=== PATIENT | male | born 1975 ===

== ENCOUNTER 2024-02-11 10:30 | Inpatient (IN) | payer OTHER, SELFPAY ==
[2024-02-11] VITALS (8 sets, daily range): BP systolic 114–168; BP diastolic 86–117; PULSE 100–130; RESP 16–24; TEMP -17.7–37.2; O2SAT 90–97; BMI 34.5
--- NOTE | ~2024-02-11 | CT_ITS ---
EXAMINATION: CT HEAD WITHOUT CONTRAST CLINICAL INFORMATION: AMS COMPARISON: None available. TECHNIQUE: Contiguous axial imaging was performed from the skull base to vertex without intravenous administration of contrast. This CT examination was performed using dose optimization techniques as appropriate, variously including the following: *Automated exposure control *Adjustment of mA and/or kV according to patient size (this includes techniques or standardized protocols for targeted exams where dose is matched to indication/reason for exam; i.e. extremities or head) *Use of iterative reconstruction technique DLP: 755 mGy-cm FINDINGS: Acute intra-axial, extra-axial bleed, masses or midline shift. There is no acute infarction in evolution. There is no edema. Brunner to white matter differentiation is maintained normal. The lateral ventricles are symmetrical in size and configuration without enlargement. Bone windows reveal no calvarial abnormality. There is mild mucoperiosteal thickening bilateral ethmoid and maxillary sinuses. The mastoid air cells are clear. CT/CT head/brain wo IV con IMPRESSION: No acute intracranial process seen Electronically signed by: Mark Jeffrey MD 02/11/2024 01:43 PM EST
--- NOTE | 2024-02-11 10:57 | ECG_ITS ---
Test Reason : MED CLEARANCE Blood Pressure : / mmHG Vent. Rate : 107 BPM Atrial Rate : 107 BPM P-R Int : 146 ms QRS Dur : 092 ms QT Int : 336 ms P-R-T Axes : 049 008 051 degrees QTc Int : 448 ms Sinus tachycardia Cannot rule out Inferior infarct , age undetermined Abnormal ECG No previous ECGs available Referred By: Mi Pizarro Electronically Signed By:ANA PAULA DELGADO MD
--- NOTE | 2024-02-11 10:57 | PC.NURSE ---
patient is calm but uncooperative during policy change clerk, patient changed into hospital attire, with security, belongings secured. patient on sect 12, made HI statements to , SI statements towards self. patient resp even and unlabored, skin dry and intact. patient noted to have left pupils larger than the right, both reactive to light, patient denies this being something he was aware of, denies any falls or trauma.
--- NOTE | 2024-02-11 11:07 | ED_ITS ---
HPI - General Adult General Chief complaint: Psychiatric Symptoms Stated complaint: PSYCH EVAL,GF STS SI/HI STATEMENTS, COOP PER EMS Time Seen by Provider: 02/11/24 10:44 Source: patient, EMS and police Mode of arrival: EMS Limitations: no limitations History of Present Illness ED Provider: Mi Pizarro PA-C HPI narrative: Patient is a 48 year old assigned male at with a history of schizophrenia and asthma presenting to the emergency department today with HI and SI statements. Patient states that last night into today his girlfriend accused him of saying something but he isn't sure what and all of a sudden police and EMS showed up. Patient denies any thoughts of hurting himself or others at this time, dizziness, lightheadedness, abdominal pain, nausea, vomiting, fever, chills, blurry vision, double vision, loss of vision, chest pain, difficulty breathing, shortness of breath, back pain, night sweats, pain with urination, increased urinary frequency, increased urinary urgency, blood in his urine or stool, syncope or a near syncopal episode, recent trauma or falls, bowel incontinence, bladder incontinence, or any other complaints at this time. Relieving factors: none Exacerbating factors: none Associated symptoms: denies other symptoms Treatments prior to arrival: none Related Data Allergies Allergy/AdvReac Type Severity Reaction Status Date / Time bupropion [From Wellbutrin] Allergy Unknown Verified 02/11/24 10:56 fluoxetine [From Prozac] Allergy Unknown Verified 02/11/24 10:56 Review of Systems 2 Constitutional: Constitutional: Reports no additional constitutional complaints, Denies chills, Denies fever(s) and Denies night sweats Eyes: Eyes: Reports no additional eye complaints, Denies blurry vision, Denies change in vision, Denies diplopia, Denies eye discharge, Denies loss of vision and Denies eye pain ENT: Denies dizziness Cardiovascular: Cardiovascular: Reports no additional cardiovascular complaints, Denies chest pain, Denies lightheadedness, Denies Loss of Consciousness and Denies dyspnea Respiratory: Respiratory: Reports no additional respiratory complaints and Denies dyspnea Gastrointestinal: Gastrointestinal: Reports no additional gastrointestinal complaints, Denies abdominal pain, Denies melena, Denies hematochezia, Denies change in bowel habits and Denies change in stool character Genitourinary: Genitourinary: Reports no additional male genitourinary complaints, Denies hematuria, Denies oliguria, Denies difficulty urinating, Denies dysuria, Denies urinary frequency, Denies urinary hesitancy, Denies urinary incontinence and Denies urinary urgency Musculoskeletal: Musculoskeletal: Reports no additional musculoskeletal complaints, Denies numbness and Denies tingling Neurologic: Denies dizziness, Denies loss of vision, Denies numbness and Denies tingling Psychiatric: Psychiatric: Reports no additional psychiatric complaints, Denies homicidal ideation and Denies suicidal ideation Endocrine: Endocrine: Reports no additional endocrine complaints Hematologic/Lymphatic: Hematologic/Lymphatic: Reports no additional hematologic/lymphatic complaints Allergic/Immunologic: Allergic/Immunologic: Reports no additional allergic/immunologic complaints PMFSH Past Medical History Attestation statement: The following information was validated with the patient. Source: old records reviewed and nursing notes reviewed Social History Social History Advance Directives: No Advance Directives Information Provided: Yes Physical Exam ED Vital Signs: Vital Signs - 24 hr 02/11/24 10:47 02/11/24 14:48 02/11/24 14:48 Temperature 97.8 F Pulse Rate 111 H 111 H 130 H Respiratory Rate 20 20 16 Blood Pressure 132/96 H 133/89 Pulse Oximetry 97 90 L Oxygen Delivery Method Room Air Room Air BMI result Body Mass Index 34.5 Const General: cooperative, no acute distress, alert and awake Nutritional Appearance: well nourished Orientation/consciousness: patient oriented x3 Limitations: no limitations [facility] Head: Yes normal to inspection and Yes atraumatic Ears: hearing grossly normal bilaterally and external ears normal General nose exam: Normal external nose present, no nasal discharge noted and no epistaxis Face and sinus: Yes normal facial exam, No abrasion and No laceration Mouth: Normal oral and palatal mucosa present, no drooling and no muffled voice Eyes General: appearance normal, both eyes and all related structures Periorbital: periorbital findings normal Eyelids: Yes eyelids normal Conjunctivae: conjunctivae normal EOM: EOMs intact bilaterally Neck Neck: Yes normal visual inspection, Yes full ROM and Yes no lymphadenopathy Chest Chest palpation & inspection: normal inspection of the chest Resp Effort & Inspection: normal respiratory effort and able to speak in complete sentences Auscultation: wheezes throughout Cardio Rate: tachycardic Rhythm: regular rhythm GI Inspection: Yes normal to inspection Neuro General: patient oriented x3 and moves all extremities Cognition (Neuro): normal cognition Extrem General: Yes normal to inspection, Yes full ROM and Yes capillary refill normal Psych Appearance: grossly normal Mental Status: mental status grossly normal Affect: normal affect Attitude: cooperative Thought process: Normal thought process present Thought content: Normal thought content present Insight: Good insight present (Psych) Medications Administered Discontinued Medications Generic Name Dose Route Start Last Admin Trade Name Daniel PRN Reason Stop Dose Admin Levalbuterol HCl 1.25 mg 02/11/24 14:47 02/11/24 14:49 Levalbuterol Hcl 1.25 Mg/3 Ml Vial.Neb INHALE 02/11/24 14:48 1.25 mg ONCE ONE Administration Lorazepam 2 mg 02/11/24 10:57 02/11/24 11:40 Lorazepam 1 Mg Tablet PO 02/11/24 10:58 2 mg ONCE ONE Administration Medical Decision Making Medical Decision Making [facility] Narrative: Patient is a 48 year old assigned male at with a history of schizophrenia and asthma presenting to the emergency department today with HI and SI statements. Patient's physical exam was as noted in the physical exam portion of this note. Patient's blood work was unremarkable. Patient's EKG showed sinus tachycardia. Patient's head CT showed no acute process. Patient's RSV test was positive. I explained my physical exam findings as well as all test results to the patient. I answered all questions asked by the patient. While awaiting CARE team evaluation the patient became more wheezy. Patient was then given IV magnesium and solu-medrol as well as a breathing treatment which he stated helped him significantly. Patient's disposition will be determined after CARE team evaluation. Patient signed out to larry CANDELARIA. Differential Diagnosis Differential Diagnoses: The differential diagnosis associated with the presentation includes RSV SI HI Alcohol use Admission/Observation Consideration of admission/observation: Escalation of care including admission/observation considered Patient's disposition will be determined after CARE team evaluation. Lab Data [facility] Lab Attestation statement: I reviewed the patient's lab results. My interpretation of these results are in the MDM Rationale portion of this note. 02/11/24 12:13 02/11/24 12:13 Labs: Lab Results 02/11/24 Range/Units 12:13 WBC 8.3 (4.8-10.8) X10*3/uL RBC 5.43 (4.60-5.80) X10*6/uL Hgb 17.7 (14.0-18.0) g/dl Hct 48.9 (42.0-52.0) % MCV 90.1 (80.0-98.0) fL MCH 32.6 (27.0-33.0) pg MCHC 36.2 H (31.0-36.0) g/dl RDW 13.1 (11.0-16.0) % Plt Count 227 (160-400) X10*3/uL MPV 8.6 L (9.4-12.4) fL Immature Gran % (Auto) 0.5 H (0.0-0.4) % Neut % (Auto) 59.7 (45-73) % Lymph % (Auto) 24.0 (20-40) % Giles % (Auto) 9.9 (2-11) % Eos % (Auto) 4.6 H (0-4) % Baso % (Auto) 1.3 (0-2) % Lymph # (Auto) 2.0 (1.2-4.9) X10*3/uL [place]iles # (Auto) 0.8 (0.1-1.2) X10*3/uL Eos # (Auto) 0.4 (0.0-0.4) X10*3/uL Baso # (Auto) 0.1 (0.0-0.2) X10*3/uL Abs Immat Gran (auto) 0.04 H (0.00-0.03) X10*3/uL Absolute Neuts (auto) 5.0 (2.0-8.3) x10*3/uL Absolute Nucleated RBC 0.000 (0.0-0.012) X10*3/uL Nucleated RBC % (auto) 0.0 (0.0-0.2) /100WBC Sodium 143 (135-145) mmol/L Potassium 3.5 (3.3-5.1) mmol/L Chloride 106 (96-108) mmol/L Carbon Dioxide 28 (22-29) mmol/L Anion Gap 13 (12-20) BUN 14 (9-16) mg/dL Creatinine 0.83 (0.5-1.4) mg/dL Estim Creat Clear Calc 123.8 Estimated GFR > 60 Random Glucose 111 (60-115) mg/dL Calcium 8.3 L (8.4-10.2) mg/dL Magnesium 2.1 (1.6-2.6) mg/dL Total Bilirubin 1.0 (0.0-1.0) mg/dL AST 79 H (5-37) U/L ALT 93 H (0-40) U/L Alkaline Phosphatase 52 (39-117) U/L Total Protein 6.8 (6.5-8.0) g/dL Albumin 4.0 (3.5-5.0) g/dL Influenza Type A (PCR) NEGATIVE (Negative) Influenza Type B (PCR) NEGATIVE (Negative) RSV RNA Qual (PCR) POSITIVE A (Negative) SARS-CoV-2 RNA (RT-PCR) NEGATIVE (Negative) Independent Interpretation I performed an independent interpretation of an: EKG and CT Scan Interpretation: My interpretation is in agreement with the radiologist's impression of this imaging study. L Report Number: [id number]: Total DLP = 755.00 mGy-cm EXAMINATION: CT HEAD WITHOUT CONTRAST CLINICAL INFORMATION: AMS COMPARISON: None available. TECHNIQUE: Contiguous axial imaging was performed from the skull base to vertex without intravenous administration of contrast. This CT examination was performed using dose optimization techniques as appropriate, variously including the following: *Automated exposure control *Adjustment of mA and/or kV according to patient size (this includes techniques or standardized protocols for targeted exams where dose is matched to indication/reason for exam; i.e. extremities or head) *Use of iterative reconstruction technique DLP: 755 mGy-cm FINDINGS: Acute intra-axial, extra-axial bleed, masses or midline shift. There is no acute infarction in evolution. There is no edema. Brunner to white matter differentiation is maintained normal. The lateral ventricles are symmetrical in size and configuration without enlargement. Bone windows reveal no calvarial abnormality. There is mild mucoperiosteal thickening bilateral ethmoid and maxillary sinuses. The mastoid air cells are clear. CT/CT head/brain wo IV con IMPRESSION: No acute intracranial process seen Electronically signed by: Mark Jeffrey MD 02/11/2024 01:43 PM [facility] Dictated By: Mark Jeffrey MD Signed By: Electronically signed by Mark Jeffrey MD 02/11/24 1343 Vent. Rate: 107 BPM Atrial Rate: 107 BPM P-R Int: 146 ms QRS Dur: 092 ms QT Int: 336 ms P-R-T Axes: 049 008 051 degrees QTc Int: 448 ms Sinus tachycardia Cannot rule out Inferior infarct , age undetermined No previous ECGs available Referred By: Mi Pizarro Electronically Signed By:SHEN DELGADO MD Dictated By: Shen Delgado MD Signed By: Electronically signed by Shen Delgado MD 02/11/24 1230 Radiology Impression Discussion of test interpretation with radiology: I have reviewed the radiologist's reading. Independent Historian Clinical information obtained from an independent historian. History obtained from or confirmed by: EMS (EMS provided additional history and confirmed the history provided by the patient.) Critical Care Time Critical Care Time Critical Care Time: Yes Total Critical Care Time: 41 Attestation: I spent 41 minutes of Critical Care Time with this patient. This does not include time spent on separately reported billable procedures. Discharge Plan Discharge Clinical Impression: RSV (respiratory syncytial virus infection), Alcohol use Patient Disposition: Still a Patient Print Language: Canadian
[2024-02-11] MEDS: LORazepam 1 MG TABLET 2 MG PO (11:40)
[2024-02-11 12:17] LABS: MANUAL DIFF FLAG NO
[2024-02-11 12:18] LABS: Basophils Absolute Auto 0.1 X10*3/uL (0.0-0.2); Basophils Percent Auto 1.3 % (0-2); Eosinophils Absolute Auto 0.4 X10*3/uL (0.0-0.4); Eosinophils Percent Auto 4.6 % (0-4); Hematocrit 48.9 % (42.0-52.0); Hemoglobin 17.7 g/dl (14.0-18.0); Imm Gran Abs Auto 0.04 X10*3/uL (0.00-0.03); Imm Gran Pct Auto 0.5 % (0.0-0.4); Mean Corpuscular HGB Conc 36.2 g/dl (31.0-36.0); Mean Corpuscular Hemoglobin 32.6 pg (27.0-33.0); Mean Corpuscular Volume 90.1 fL (80.0-98.0); Mean Platelet Volume 8.6 fL (9.4-12.4); Monocytes Absolute Auto 0.8 X10*3/uL (0.1-1.2); Monocytes Percent Auto 9.9 % (2-11); Neutrophils Percent Auto 59.7 % (45-73); Platelet Count 227 X10*3/uL (160-400); Red Blood Count 5.43 X10*6/uL (4.60-5.80); Red Cell Distribution Width 13.1 % (11.0-16.0); White Blood Count 8.3 X10*3/uL (4.8-10.8)
[2024-02-11 12:34] LABS: Alanine Aminotransferase 93 U/L (0-40); Alkaline Phosphatase 52 U/L (39-117); Anion Gap 13 (12-20); Aspartate Amino Transferase 79 U/L (5-37); Blood Urea Nitrogen 14 mg/dL (9-16); Calcium 8.3 mg/dL (8.4-10.2); Carbon Dioxide 28 mmol/L (22-29); Chloride 106 mmol/L (96-108); Creatinine Clr Calc Pharmacy 123.8; Estimated Glomerular Filt Rate > 60; Glucose Random 111 mg/dL (60-115); Magnesium 2.1 mg/dL (1.6-2.6); Potassium 3.5 mmol/L (3.3-5.1); Sodium 143 mmol/L (135-145); Total Protein 6.8 g/dL (6.5-8.0)
[2024-02-11 12:59] LABS: Influenza A PCR NEGATIVE (Negative); Influenza B PCR NEGATIVE (Negative); Resp Syncy Virus RNA Qual PCR POSITIVE (Negative); SARS COV2 PCR INHOUSE NEGATIVE (Negative)
--- NOTE | 2024-02-11 14:42 | PC.NURSE ---
Pt c/o diff breathing. is sitting at bdside. tripoding. skin pwd. provider aware. treatment ordred.
[2024-02-11] MEDS: levalbuterol HCL 1.25 MG/3 ML VIAL.NEB INHALE (14:49)
[2024-02-11] MEDS: methylPREDNISolone Sod Succ 125 MG/2 ML VIAL 60 MG IVPUSH (15:20)
[2024-02-11] MEDS: Magnesium Sulfate/D5W 1 GM/100 ML PIGGYBACK IV (15:21)
--- NOTE | 2024-02-11 15:27 | PC.NURSE ---
Pt reports feeling better. Is on monitor in dong bed. ST. skin PWD. slightl tremor. last ETOH this am.
[2024-02-11] MEDS: Albuterol Sulfate 90 MCG 8 GM INHALER 4 PUFF INHALE (16:25)
[2024-02-11] MEDS: 0.9 % Sodium Chloride 1,000 ML 999 ML IV (17:45)
[2024-02-11 18:45] LABS: Appearance Urine Cloudy; Color Urine Yellow; Glucose Urine UA 100 mg/dL (Negative); Leukocyte Esterase Urine Trace (Negative); Nitrite Urine Negative (Negative); UMIC TRIGGER UACC YES; Urine Blood Moderate (2+) (Negative); Urine Ketones Trace mg/dL (Negative); Urine Protein 30 (1+) mg/dL (Neg-Trace)
[2024-02-11 18:48] LABS: Bacteria Urine None Seen (None Seen); Hyaline Casts Urine 0-2 /LPF (0-2); Squamous Epithelial Cell Urine 0-2 /HPF (0-2); WBC Urine 0-5 /HPF (0-5)
--- NOTE | 2024-02-11 19:15 | PC.NURSE ---
Pt adament he will leave AMA. Risks and benefits reviewed by ED provider. D/c paperwork signed and Pt given belongings. Upon attempting to leave Pt reports he feels unwell and reconsiders and wishes to stay for Tx. ED provider aware. Pt placed back on stretcher with O2 and O2 sensor. Care of Pt relinquished to SUGAR Granda.
[2024-02-11] MEDS: PHENobarbitaL sodium 130 MG/ML VIAL 260 MG IM (19:24)
[2024-02-11 19:28] LABS: Amphetamine Screen Urine Not Detected (Not Detect); Barbiturates, Urine Not Detected (Not Detect); Benzodiazepines Screen Urine Not Detected (Not Detect); Buprenorphine Scr Not Detected (Not Detect); Cannabinoid Screen Urine Not Detected (Not Detect); Cocaine Screen Urine POSITIVE (Not Detect); Fentanyl, urine Not Detected (Not Detect); Methadone Screen, Urine Not Detected (Not Detect); Opiate Screen Urine Not Detected (Not Detect); Oxycodone Screen Urine Not Detected (Not Detect); Phencyclidine Screen Urine Not Detected (Not Detect)
--- NOTE | 2024-02-11 19:37 | PM.IMHP ---
History of Present Illness Date of Service: 02/11/24 Chief Complaint: Alcohol withdrawal This is a 48-year-old male with pertinent history of asthma not on home oxygen, alcohol use disorder who presents to the emergency department for concerns of alcohol withdrawal and dyspnea. Patient states he got in a fight with his girlfriend and was binge drinking on the day of presentation. His last drink was on the day of presentation. Does have a history of alcohol withdrawals in the past. No history of alcohol withdrawal seizures. Also started having dyspnea and dry cough on the day of presentation. Dyspnea is worse with exertion. No orthopnea or PND. No fever, chills, chest pain, palpitations, abdominal pain, changes in urinary or bowel habits. In the emergency department, patient tested positive for RSV and requiring supplemental oxygen. Was initiated on phenobarb protocol in the ER. Review of Systems Constitutional: Constitutional: Reports malaise Cardiovascular: Cardiovascular: Reports dyspnea on exertion Respiratory: Respiratory: Reports cough and Reports dyspnea on exertion Gastrointestinal: Gastrointestinal: Reports no additional gastrointestinal complaints Genitourinary: Genitourinary: Reports no additional male genitourinary complaints Psychiatric: Psychiatric: Reports anxiety [facility] Medical History Alcohol use disorder Asthma Pertinent family history: No family history of early CAD Social History Advance Directives: No Advance Directives Information Provided: Yes Meds Allergies Allergy/AdvReac Type Severity Reaction Status Date / Time bupropion [From Wellbutrin] Allergy Unknown Verified 02/11/24 10:56 fluoxetine [From Prozac] Allergy Unknown Verified 02/11/24 10:56 Physical Exam Vital Signs and Narrative: Vital Signs: Last Vital Signs Temp 0 F L 02/11/24 18:58 Pulse 122 H 02/11/24 18:58 Resp 20 02/11/24 18:58 BP 143/99 H 02/11/24 18:58 Pulse Ox 96 02/11/24 18:58 O2 Del Method Room Air 02/11/24 18:58 O2 Flow Rate 3 02/11/24 15:16 BMI result Body Mass Index 34.5 Middle-aged male lying in bed in no distress Neck supple, no JVD Tachycardic with regular rhythm, S1-S2 heard Regular breath sounds bilaterally, no wheezing or crackles appreciated Abdomen soft nontender, no guarding, no rigidity Patient is awake, alert and oriented to self, place, time and person ; no focal motor deficit Psych: Anxious No pedal edema Results Labs 02/11/24 12:13 02/11/24 12:13 Labs: Laboratory Results - last 24 hr 02/11/24 02/11/24 12:13 18:35 MCV 90.1 MCH 32.6 MCHC 36.2 H RDW 13.1 Plt Count 227 MPV 8.6 L Immature Gran % (Auto) 0.5 H Neut % (Auto) 59.7 Lymph % (Auto) 24.0 Dolores % (Auto) 9.9 Eos % (Auto) 4.6 H Baso % (Auto) 1.3 Lymph # (Auto) 2.0 [place]ores # (Auto) 0.8 Eos # (Auto) 0.4 Baso # (Auto) 0.1 Abs Immat Gran (auto) 0.04 H Absolute Neuts (auto) 5.0 Absolute Nucleated RBC 0.000 Nucleated RBC % (auto) 0.0 Anion Gap 13 Estim Creat Clear Calc 123.8 Estimated GFR > 60 Random Glucose 111 Calcium 8.3 L Magnesium 2.1 Total Bilirubin 1.0 AST 79 H ALT 93 H Alkaline Phosphatase 52 Total Protein 6.8 Albumin 4.0 Urine Color Yellow Urine Appearance Cloudy Urine pH 8.0 Ur Specific [place] 1.020 Urine Protein 30 (1+) H Urine Glucose (UA) 100 H Urine Ketones Trace Urine Blood Moderate (2+) H Urine Nitrite Negative Ur Leukocyte Esterase Trace H Urine RBC 11-20 H Urine WBC 0-5 Ur Squamous Epith Cells 0-2 Urine Bacteria None Seen Hyaline Casts 0-2 Urine Opiates Screen Not Detected Ur Buprenorphine Scrn Not Detected Ur Oxycodone Screen Not Detected Urine Methadone Screen Not Detected Urine Fentanyl Screen Not Detected Ur Barbiturates Screen Not Detected Ur Phencyclidine Scrn Not Detected Ur Amphetamines Screen Not Detected U Benzodiazepines Scrn Not Detected Urine Cocaine Screen POSITIVE H U Marijuana (THC) Screen Not Detected Influenza Type A (PCR) NEGATIVE Influenza Type B (PCR) NEGATIVE RSV RNA Qual (PCR) POSITIVE A SARS-CoV-2 RNA (RT-PCR) NEGATIVE Imaging Radiologist's Impressions: Impressions Head CT 02/11/24 12:50 IMPRESSION: No acute intracranial process seen Electronically signed by: Mark Jeffrey MD 02/11/2024 01:43 PM EST Assessment and Plan (1) Asthma exacerbation: Status: Acute (2) Alcohol use: Status: Acute Plan This is a 48-year-old male with pertinent history of asthma not on home oxygen, alcohol use disorder who presents to the emergency department for concerns of alcohol withdrawal and dyspnea. #. Acute hypoxemic respiratory failure due to acute exacerbation of asthma in the setting of RSV infection: Will admit patient with supplemental oxygen. Scheduled and p.r.n. DuoNebs. Continue home inhaler. Initiating systemic steroids #. Alcohol withdrawal in a patient with alcohol use disorder: Initiated on phenobarb protocol in the ER. Monitor CIWA. Initiating thiamine. Consulted Addiction Team #. Cocaine use disorder: Addiction Team as above DVT prophylaxis: Lovenox Full code Admit as inpatient and will require two night minimum hospital stay for supplemental oxygen, management of alcohol withdrawal (as above), which is not possible in a lesser acute setting. Quality Stroke Does the patient have a stroke diagnosis?: No VTE Prior VTE?: No VTE Risk Level:: Medical - moderate - high VTE Device Contraindication: Treatment Not Indicated VTE Drug Contraindication: N/A - Med Ordered
[2024-02-11] MEDS: LORazepam 1 MG TABLET PO (20:05)
--- NOTE | 2024-02-11 20:36 | MHC.EDTECH ---
This tech took over care of pt at 1930,rounded and introduced self to patient.vitals taken,BP is elevated RT,154/117,LT arm 168/112,HR 115, RN was made aware,
[2024-02-11] MEDS: Thiamine HCL 100 MG in 0.9 % Sodium Chloride 100 ML 202 MG IV (20:41)
--- NOTE | 2024-02-11 21:02 | PHA.MEDREC ---
Addendum entered by Kendall Sahni RPh 02/11/24 21:08: med rec reviewed. pharmaceutical service representative checked last fill of xanax was 06/14/23 Original Note: Pharmacy Consult ? Medication Reconciliation Pharmacy has completed the medication reconciliation. Spoke to patient to confirm med list. Patient states he is taking Duoneb, Ventolin HFA inhaler and Xanax 0.5 mg daily prn , however last claim for Xanax 0.25 mg was on 06/14/23 for 8 tabs no claim history for any other medications. So, left off med rec.
[2024-02-11] MEDS: Enoxaparin Sodium 40 MG/0.4 ML SYRINGE SUBCUT (21:20)
[2024-02-11] MEDS: PHENobarbitaL sodium 130 MG/ML VIAL IM Q3Hx2 237 MG IM (21:53)
[2024-02-11] MEDS: 0.9 % Sodium Chloride Flush 3 ML SYRINGE IVFLUSH (22:25)
[2024-02-12] VITALS: BP 149/84; PULSE 104; RESP 17; TEMP 36.4; O2SAT 91
[2024-02-12] MEDS: PHENobarbitaL sodium 130 MG/ML VIAL IM Q3Hx2 237 MG IM (01:11)
[2024-02-12] MEDS: Albuterol/Iprat 2.5/0.5MG 3 ML AMPUL.NEB INHALE ×3 (03:24→15:46)
[2024-02-12 03:26] VITALS: PULSE 102; RESP 20; O2SAT 92
[2024-02-12 06:30] LABS: MANUAL DIFF FLAG NO
[2024-02-12 06:37] LABS: Basophils Percent Auto 0.3 % (0-2); Eosinophils Percent Auto 0.1 % (0-4); Hematocrit 43.1 % (42.0-52.0); Hemoglobin 15.4 g/dl (14.0-18.0); Imm Gran Abs Auto 0.06 X10*3/uL (0.00-0.03); Imm Gran Pct Auto 0.7 % (0.0-0.4); Lymphocytes Absolute Auto 0.9 X10*3/uL (1.2-4.9); Lymphocytes Percent Auto 9.7 % (20-40); Mean Corpuscular HGB Conc 35.7 g/dl (31.0-36.0); Mean Corpuscular Hemoglobin 32.4 pg (27.0-33.0); Mean Corpuscular Volume 90.7 fL (80.0-98.0); Mean Platelet Volume 9.5 fL (9.4-12.4); Monocytes Absolute Auto 0.7 X10*3/uL (0.1-1.2); Monocytes Percent Auto 7.4 % (2-11); Neutrophils Absolute Auto 7.2 x10*3/uL (2.0-8.3); Neutrophils Percent Auto 81.8 % (45-73); Platelet Count 216 X10*3/uL (160-400); Red Blood Count 4.75 X10*6/uL (4.60-5.80); Red Cell Distribution Width 12.9 % (11.0-16.0); White Blood Count 8.8 X10*3/uL (4.8-10.8)
[2024-02-12 06:50] LABS: Anion Gap 12 (12-20); Blood Urea Nitrogen 16 mg/dL (9-16); Calcium 8.1 mg/dL (8.4-10.2); Carbon Dioxide 25 mmol/L (22-29); Chloride 106 mmol/L (96-108); Creatinine Clr Calc Pharmacy 120.9; Estimated Glomerular Filt Rate > 60; Glucose Random 134 mg/dL (60-115); Potassium 4.1 mmol/L (3.3-5.1); Sodium 139 mmol/L (135-145)
[2024-02-12 07:32] VITALS: BP 137/89; PULSE 88; RESP 16; TEMP 36.1; O2SAT 96
[2024-02-12 08:05] VITALS: PULSE 60; RESP 18; O2SAT 96
[2024-02-12] MEDS: 0.9 % Sodium Chloride Flush 3 ML SYRINGE IVFLUSH (08:59)
[2024-02-12] MEDS: PHENobarbitaL 15 MG TABLET 45 MG PO (09:00)
[2024-02-12] MEDS: Thiamine HCL 100 MG TABLET PO (09:00)
[2024-02-12] MEDS: predniSONE 20 MG TABLET 40 MG PO (09:00)
--- NOTE | 2024-02-12 12:48 | MHC.CM.PN ---
pt lives w/gir;friend he has his own ride home dc plan home n/s
--- NOTE | 2024-02-12 13:36 | P.PNIM_ITS ---
Subjective Subjective Date of Service: 02/12/24 Interval History: Feeling better since yesterday, shortness of breath has improved , denies tremors, no hallucinations, no palpitations, no sweating, no acute events overnight. Review of Systems All other system reviewed and are negative Physical Exam 2 Vital Signs: Vital Signs: Last Vital Signs Temp 96.9 F 02/12/24 07:32 Pulse 60 02/12/24 08:05 Resp 18 02/12/24 08:05 BP 137/89 02/12/24 07:32 Pulse Ox 96 02/12/24 07:32 O2 Del Method Nasal Cannula 02/12/24 07:32 O2 Flow Rate 1.5 02/12/24 07:32 BMI result Body Mass Index 34.5 Const: Other: General resting comfortably in no acute distress. Anicteric sclera Neck no JVD. CVS regular rate rhythm, Respiratory lungs coarse breath sounds, occasional wheeze Gastrointestinal abdomen soft, non tender, bowel sounds audible,no guarding , no rigidity. Extremities no edema. Neuro non focal Skin no rash Appropriate affect Objective Data Active Medications Acetaminophen (Acetaminophen 325 Mg Tablet) 650 mg PO Q6H PRN PRN Reason: Pain, Mild 1-3,fever,headache Albuterol/Ipratropium (Albuterol/Iprat 2.5/0.5mg 3 Ml Ampul.Neb) 3 ml INHALE Q4H PRN PRN Reason: Shortness of Breath/Wheezing Last Admin: 02/12/24 03:24 Dose: 3 ml Documented By: BRI Albuterol/Ipratropium (Albuterol/Iprat 2.5/0.5mg 3 Ml Ampul.Neb) 3 ml INHALE RQ4H WHILE AWAKE [facility] Last Admin: 02/12/24 11:46 Dose: Not Given Documented By: LISSA Non-Admin Reason: Patient Refused Benzonatate (Benzonatate 100 Mg Capsule) 100 mg PO TID PRN PRN Reason: Cough Calcium Carbonate (Calcium Carbonate 750 Mg Tab.Chew) 750 mg PO Q4H PRN PRN Reason: Heartburn Enoxaparin Sodium (Enoxaparin Sodium 40 Mg/0.4 Ml Syringe) 40 mg SUBCUT Q24H [facility] Last Admin: 02/11/24 21:20 Dose: 40 mg Documented By: ALEXA Magnesium Hydroxide (Milk Of Magnesia 30 Ml Oral.Susp) 30 ml PO DAILY PRN PRN Reason: Constipation Melatonin (Melatonin 3 Mg Tablet) 6 mg PO BEDTIME PRN PRN Reason: Insomnia Ondansetron HCl (Ondansetron Hcl 4 Mg/2 Ml Vial) 4 mg IVPUSH Q8H PRN PRN Reason: Nausea and Vomiting Pharmacy Consult (Consult Rx Etoh Phenob Im/Po) 1 each MISCELLANE ONCE PRN; Protocol PRN Reason: Consult order Phenobarbital (Phenobarbital 15 Mg Tablet) 45 mg PO BID [facility] Stop: 02/13/24 21:01 Last Admin: 02/12/24 09:00 Dose: 45 mg Documented By: CLARI Phenobarbital (Phenobarbital 30 Mg Tablet) 30 mg PO BID [facility] Stop: 02/15/24 21:01 Phenobarbital (Phenobarbital 15 Mg Tablet) 15 mg PO DAILY [facility] Stop: 02/17/24 09:01 Prednisone (Prednisone 20 Mg Tablet) 40 mg PO DAILY [facility] Last Admin: 02/12/24 09:00 Dose: 40 mg Documented By: CLARI Sodium Chloride (0.9 % Sodium Chloride Flush 3 Ml Syringe) 3 ml IVFLUSH QSHIFT [facility] Last Admin: 02/12/24 08:59 Dose: 3 ml Documented By: CLARI Thiamine HCl (Thiamine Hcl 100 Mg Tablet) 100 mg PO DAILY [facility] Last Admin: 02/12/24 09:00 Dose: 100 mg Documented By: CLRAI Labs 02/12/24 05:40 02/12/24 05:39 Labs: Laboratory Results - last 24 hr 02/11/24 02/12/24 02/12/24 18:35 05:39 05:40 MCV 90.7 MCH 32.4 MCHC 35.7 RDW 12.9 Plt Count 216 MPV 9.5 Immature Gran % (Auto) 0.7 H Neut % (Auto) 81.8 H Lymph % (Auto) 9.7 L [place] % (Auto) 7.4 Eos % (Auto) 0.1 Baso % (Auto) 0.3 Lymph # (Auto) 0.9 L [place] # (Auto) 0.7 Eos # (Auto) 0.0 Baso # (Auto) 0.0 Abs Immat Gran (auto) 0.06 H Absolute Neuts (auto) 7.2 Absolute Nucleated RBC 0.000 Nucleated RBC % (auto) 0.0 Anion Gap 12 Estim Creat Clear Calc 120.9 Estimated GFR > 60 Random Glucose 134 H Calcium 8.1 L Urine Color Yellow Urine Appearance Cloudy Urine pH 8.0 Ur Specific [place] 1.020 Urine Protein 30 (1+) H Urine Glucose (UA) 100 H Urine Ketones Trace Urine Blood Moderate (2+) H Urine Nitrite Negative Ur Leukocyte Esterase Trace H Urine RBC 11-20 H Urine WBC 0-5 Ur Squamous Epith Cells 0-2 Urine Bacteria None Seen Hyaline Casts 0-2 Urine Opiates Screen Not Detected Ur Buprenorphine Scrn Not Detected Ur Oxycodone Screen Not Detected Urine Methadone Screen Not Detected Urine Fentanyl Screen Not Detected Ur Barbiturates Screen Not Detected Ur Phencyclidine Scrn Not Detected Ur Amphetamines Screen Not Detected U Benzodiazepines Scrn Not Detected Urine Cocaine Screen POSITIVE H U Marijuana (THC) Screen Not Detected Assessment and Plan (1) Alcohol use disorder: Status: Acute (2) Asthma exacerbation: Status: Acute (3) RSV (respiratory syncytial virus infection): Status: Acute Plan 48-year-old male with pertinent history of asthma not on home oxygen, alcohol use disorder who presents to the emergency department for concerns of alcohol withdrawal and dyspnea. #. Acute hypoxemic respiratory failure due to acute exacerbation of intermittent asthma in the setting of RSV infection: Feeling better, continue prednisone and Scheduled and p.r.n. DuoNebs. Wean O2 as needed not on home oxygen #. Alcohol withdrawal in a patient with alcohol use disorder: on phenobarb protocol, CIWA 0, continue thiamine and folic acid Await Addiction Team input #. Cocaine use disorder: Addiction Team DVT prophylaxis: Lovenox Admit as inpatient and will require continued inpatient hospital stay for supplemental oxygen, management of alcohol withdrawal (as above), which is not possible in a lesser acute setting. Quality Stroke Does the patient have a stroke diagnosis?: No VTE Prior VTE?: No VTE Risk Level:: Medical - moderate - high VTE Device Contraindication: Treatment Not Indicated VTE Drug Contraindication: N/A - Med Ordered
[2024-02-12 15:22] VITALS: BP 130/72; PULSE 93; RESP 18; TEMP 36.6; O2SAT 94
[2024-02-12 15:47] VITALS: PULSE 93; RESP 16; O2SAT 94
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
== END 2024-02-12 18:29 | disposition home or self-care (01) | DRG 202 ==
LOC: HO.ED 19:11 → HO.EDOVER 19:40 → HO.S3 19:49
PROVIDERS: Physician Assistant Medical; Admitting Provider Student in an Organized Health Care Education/Training Program; Emergency Provider Emergency Medicine; Visit Provider Hospitalist
DX: J45.21 Mild intermittent asthma with (acute) exacerbation (principal); J96.01 Acute respiratory failure with hypoxia; F10.939 Alcohol use, unspecified with withdrawal, unspecified; F39 Unspecified mood [affective] disorder; B97.4 Respiratory syncytial virus as the cause of diseases classified elsewhere; F14.90 Cocaine use, unspecified, uncomplicated; Z20.822 Contact with and (suspected) exposure to COVID-19
CPT/HCPCS: 0241U; 36415; 70450; 80048; 80053; 80307; 81001; 83735; 85025; 93005; 94640; 99221; 99285; J1650; J2560; J2919; J3411; J3475

== ENCOUNTER → 2024-02-11 10:57 | Outpatient (BNV) | payer SELFPAY | PROVIDERS: Emergency Provider Emergency Medicine; Visit Provider Internal Medicine Cardiovascular Disease | DX: R94.31 Abnormal electrocardiogram [ECG] [EKG] (principal) | CPT/HCPCS: 93010 ==

== ENCOUNTER → 2024-02-11 10:57 | Outpatient (BNV) | payer SELFPAY | PROVIDERS: Emergency Provider Emergency Medicine; Visit Provider Radiology Diagnostic Radiology | DX: R41.82 Altered mental status, unspecified (principal) | CPT/HCPCS: 70450 ==

== ENCOUNTER → 2024-02-11 19:35 | Outpatient (BNV) | payer OTHER, SELFPAY | PROVIDERS: Admitting Provider Student in an Organized Health Care Education/Training Program; Emergency Provider Emergency Medicine; Visit Provider Student in an Organized Health Care Education/Training Program | DX: J96.01 Acute respiratory failure with hypoxia (principal); B97.4 Respiratory syncytial virus as the cause of diseases classified elsewhere; J45.901 Unspecified asthma with (acute) exacerbation; F10.939 Alcohol use, unspecified with withdrawal, unspecified | CPT/HCPCS: 99223; 99239 ==

== ENCOUNTER 2024-02-14 20:53 | Emergency (ER) | payer OTHER, SELFPAY ==
--- NOTE | ~2024-02-14 | XR_ITS ---
CLINICAL HISTORY: shortness of breath 2 view chest x-ray Comparison: None Findings: Patchy airspace disease in the right midlung. Otherwise clear lungs. No pleural effusion or pneumothorax. Heart size normal. Remote right rib fractures which have healed. IMPRESSION: 1. Patchy right midlung airspace opacity, likely infectious. This document has been electronically signed by: Quoc Acuna MD on 02/14/2024 21:24:31
[2024-02-14 20:55] VITALS: BP 154/95; PULSE 141; RESP 25; TEMP 36.6; O2SAT 92; BMI 32.3
--- NOTE | 2024-02-14 20:57 | ED.GENADULT ---
HPI - General Adult General Chief complaint: Dyspnea Stated complaint: low oxygen level, diff breathing Time Seen by Provider: 02/14/24 23:07 Source: patient Mode of arrival: ambulatory Limitations: no limitations History of Present Illness ED Provider: HPI narrative: Patient's history of asthma recently diagnose with RSV 3 days ago today patient was coughing a lot decreased saturation to 88% after he inhaled the pine cat litter which he is allergic to already on prednisone and using nebulizer treatment saturating 94% at room air on arrival no chest pain no leg swelling cough is mostly dry Related Data Previous Rx's ?Medication ?Instructions ?Recorded albuterol sulfate 90 mcg/actuation 2 puff inhalation Q4-6H PRN 02/12/24 aerosol inhaler shortness of breath or wheezing #8.5 grams prednisone 20 mg tablet 20 mg PO DAILY #4 tabs 02/12/24 Allergies Allergy/AdvReac Type Severity Reaction Status Date / Time bupropion [From Wellbutrin] Allergy Unknown Verified 02/14/24 20:58 fluoxetine [From Prozac] Allergy Unknown Verified 02/14/24 20:58 Review of Systems Review of Systems: Yes all other systems are reviewed and are negative [facility] Past Medical History Medical History Alcohol use disorder Asthma Social History Social History Household Members: Significant Other Housing: House Do you presently have visiting nurse or other home services: No Patient Tobacco Use Status: Never used Tobacco Smoked in Last 30 Days: No Substance Use Type: Crack/Cocaine and Marijuana Substance Use Frequency: Occasionally Advance Directives: No Advance Directives Information Provided: Yes Do you have a plan to hurt others: No Plan service: No Physical Exam ED Vital Signs: Vital Signs - 24 hr 02/14/24 20:55 02/14/24 22:07 02/14/24 23:30 Temperature 97.8 F Pulse Rate 141 H 122 H 87 Respiratory Rate 25 H 28 H 14 Blood Pressure 154/95 H 125/85 116/63 Pulse Oximetry 92 94 97 Oxygen Delivery Method Room Air Room Air Room Air BMI result Body Mass Index 32.3 Appearance: Alert. Oriented X3. No acute distress. Eyes: No pallor or icterus ENT: Pharynx normal. Oral Mucosa moist Neck: Normal inspection. Neck supple. CVS: Normal heart rate and rhythm. Pulses normal. Respiratory: No respiratory distress. Equal air entry bilateral, bilateral wheezing frequent cough Abdomen: Soft and nontender. Bowel sounds are present, Skin: Skin warm and dry. Normal skin color. Normal skin turgor. Extremities: No lower extremity edema. No calf tenderness Neuro: Oriented X 3. No motor deficit. Course Course Course Narrative: This is a rapid medical exam performed by Bhupendra Rocha NP: Additional HPI, ROS, PE not included below will be deferred to primary provider. Patient is a 48-year-old male with history of asthma recently diagnosed with RSV presenting with complaint of low O2 levels on home pulse ox. O2 in triage 92% on room air and HR 140. Plan: ekg, labs, cxr Medications Administered Discontinued Medications Generic Name Dose Route Start Last Admin Trade Name Freq PRN Reason Stop Dose Admin Azithromycin 500 mg 02/14/24 23:33 02/15/24 00:06 Azithromycin 500 Mg Tablet PO 02/14/24 23:34 500 mg ONCE ONE Administration Albuterol Sulfate 2.5 mg/ 0 mg 02/14/24 23:33 02/15/24 00:51 Albuterol/Ipratropium 3 ml INHALE 02/14/24 23:34 3.5 dose ONCE ONE Administration Guaifenesin/Codeine Phosphate 10 ml 02/14/24 23:34 02/15/24 00:06 Guaifen/Codeine Sf 200/20/10ml 10 Ml Liquid PO 02/14/24 23:35 10 ml ONCE ONE Administration Medical Decision Making Medical Decision Making [facility] Narrative: Patient's RSV bronchitis improved during stay in the ER after DuoNeb treatment feeling much better at time of discharge will give a course of Zithromax Lab Data [facility] Lab Attestation statement: I reviewed the patient's lab results. 02/14/24 21:57 02/14/24 21:57 Labs: Lab Results 02/14/24 Range/Units 21:57 WBC 9.0 (4.8-10.8) X10*3/uL RBC 4.90 (4.60-5.80) X10*6/uL Hgb 16.2 (14.0-18.0) g/dl Hct 43.7 (42.0-52.0) % MCV 89.2 (80.0-98.0) fL MCH 33.1 H (27.0-33.0) pg MCHC 37.1 H (31.0-36.0) g/dl RDW 13.2 (11.0-16.0) % Plt Count 154 L D (160-400) X10*3/uL MPV 9.2 L (9.4-12.4) fL Immature Gran % (Auto) 1.0 H (0.0-0.4) % Neut % (Auto) 73.7 H (45-73) % Lymph % (Auto) 13.4 L (20-40) % [place] % (Auto) 11.4 H (2-11) % Eos % (Auto) 0.3 (0-4) % Baso % (Auto) 0.2 (0-2) % Lymph # (Auto) 1.2 (1.2-4.9) X10*3/uL [place] # (Auto) 1.0 (0.1-1.2) X10*3/uL Eos # (Auto) 0.0 (0.0-0.4) X10*3/uL Baso # (Auto) 0.0 (0.0-0.2) X10*3/uL Abs Immat Gran (auto) 0.09 H (0.00-0.03) X10*3/uL Absolute Neuts (auto) 6.6 (2.0-8.3) x10*3/uL Absolute Nucleated RBC 0.000 (0.0-0.012) X10*3/uL Nucleated RBC % (auto) 0.0 (0.0-0.2) /100WBC Sodium 140 (135-145) mmol/L Potassium 3.5 (3.3-5.1) mmol/L Chloride 107 (96-108) mmol/L Carbon Dioxide 24 (22-29) mmol/L Anion Gap 13 (12-20) BUN 15 (9-16) mg/dL Creatinine 0.84 (0.5-1.4) mg/dL Estim Creat Clear Calc 114.6 Estimated GFR > 60 Random Glucose 117 H (60-115) mg/dL Calcium 7.5 L D (8.4-10.2) mg/dL Total Bilirubin 0.7 (0.0-1.0) mg/dL AST 112 H (5-37) U/L ALT 168 H (0-40) U/L Alkaline Phosphatase 44 (39-117) U/L Total Protein 6.5 (6.5-8.0) g/dL Albumin 3.9 (3.5-5.0) g/dL Independent Interpretation I performed an independent interpretation of an: Plain X-Ray Radiology Impression Discussion of test interpretation with radiology: I have reviewed the radiologist's reading. Radiologist Impression: Ordering Physician: Jayleen Rocha NP Date of Service: 02/14/24 Procedure(s): XR chest 2V Accession Number(s): [id number] cc: Physician,Unknown ; Jayleen Rocha NP~ CLINICAL HISTORY: shortness of breath 2 view chest x-ray Comparison: None Findings: Patchy airspace disease in the right midlung. Otherwise clear lungs. No pleural effusion or pneumothorax. Heart size normal. Remote right rib fractures which have healed. IMPRESSION: 1. Patchy right midlung airspace opacity, likely infectious. This document has been electronically signed by: Quoc Acuna MD on 02/14/2024 21:24:31 Discharge Plan Discharge Clinical Impression: RSV (respiratory syncytial virus infection), Asthma with exacerbation Patient Disposition: Home, Self-Care Instructions: Respiratory Syncytial Virus (ED), Asthma (DC) Additional Instructions: Continue take your nebulizer treatments at home Continue prednisone Stay away from allergens Prescriptions: No Action albuterol sulfate 90 mcg/actuation HFA aerosol inhaler 2 puff inhalation Q4-6H PRN (Reason: shortness of breath or wheezing) Qty: 8.5 0RF prednisone 20 mg tablet 20 mg PO DAILY Qty: 4 0RF Rx Instructions: take with food Interventions: ED Discharge Assessment Last Done: 02/15/24 01:47 Discharge Date/Time: 02/15/24 01:48 Print Language: Bengali
--- NOTE | 2024-02-14 20:58 | ECG_ITS ---
Test Reason : SOB, TACHYCARDIA Blood Pressure : / mmHG Vent. Rate : 134 BPM Atrial Rate : 134 BPM P-R Int : 128 ms QRS Dur : 086 ms QT Int : 290 ms P-R-T Axes : 068 046 058 degrees QTc Int : 433 ms Sinus tachycardia Otherwise normal ECG When compared to the previous EKG of No significant changes seen Referred By: Jayleen Rocha Electronically Signed By:ANA PAULA DELGADO MD
[2024-02-14 22:01] LABS: MANUAL DIFF FLAG NO
[2024-02-14 22:02] LABS: Basophils Percent Auto 0.2 % (0-2); Eosinophils Percent Auto 0.3 % (0-4); Hematocrit 43.7 % (42.0-52.0); Hemoglobin 16.2 g/dl (14.0-18.0); Imm Gran Abs Auto 0.09 X10*3/uL (0.00-0.03); Lymphocytes Absolute Auto 1.2 X10*3/uL (1.2-4.9); Lymphocytes Percent Auto 13.4 % (20-40); Mean Corpuscular HGB Conc 37.1 g/dl (31.0-36.0); Mean Corpuscular Hemoglobin 33.1 pg (27.0-33.0); Mean Corpuscular Volume 89.2 fL (80.0-98.0); Mean Platelet Volume 9.2 fL (9.4-12.4); Monocytes Percent Auto 11.4 % (2-11); Neutrophils Absolute Auto 6.6 x10*3/uL (2.0-8.3); Neutrophils Percent Auto 73.7 % (45-73); Platelet Count 154 X10*3/uL (160-400); Red Cell Distribution Width 13.2 % (11.0-16.0)
[2024-02-14 22:07] VITALS: BP 125/85; PULSE 122; RESP 28; O2SAT 94
[2024-02-14 22:16] LABS: Alanine Aminotransferase 168 U/L (0-40); Albumin Level 3.9 g/dL (3.5-5.0); Alkaline Phosphatase 44 U/L (39-117); Anion Gap 13 (12-20); Aspartate Amino Transferase 112 U/L (5-37); Bilirubin Total 0.7 mg/dL (0.0-1.0); Blood Urea Nitrogen 15 mg/dL (9-16); Calcium 7.5 mg/dL (8.4-10.2); Carbon Dioxide 24 mmol/L (22-29); Chloride 107 mmol/L (96-108); Creatinine Clr Calc Pharmacy 114.6; Estimated Glomerular Filt Rate > 60; Glucose Random 117 mg/dL (60-115); Potassium 3.5 mmol/L (3.3-5.1); Sodium 140 mmol/L (135-145); Total Protein 6.5 g/dL (6.5-8.0)
--- NOTE | 2024-02-14 22:21 | PC.NURSE ---
Per patient, he's been using his neb & taking his inhaler all day, also took PO prednisone at home. Denies pain at this time, audibly wheezy but able to hold a conversation, sats 93 - 96% on RA, HR tachy in 120's
[2024-02-14 23:30] VITALS: BP 116/63; PULSE 87; RESP 14; O2SAT 97
[2024-02-15] MEDS: Azithromycin 500 MG TABLET PO (00:06)
[2024-02-15] MEDS: guaiFEN/Codeine SF 200/20/10ML 10 ML LIQUID PO (00:06)
[2024-02-15] MEDS: Albuterol Sulfate 2.5 MG, Albuterol/Iprat 2.5/0.5MG 3 ML 3 ML INHALE (00:51)
[2024-02-15 00:52] VITALS: PULSE 116; RESP 18; O2SAT 93
[2024-02-15 01:43] VITALS: BP 120/79; PULSE 123; RESP 25; TEMP 36.8; O2SAT 94
[2024-02-15 01:47] VITALS: BP 120/79; PULSE 123; RESP 25; TEMP 36.8; O2SAT 94
== END 2024-02-15 01:48 | disposition home or self-care (01) ==
PROVIDERS: Registered Nurse Emergency; Emergency Provider Internal Medicine
DX: J45.901 Unspecified asthma with (acute) exacerbation (principal); B97.4 Respiratory syncytial virus as the cause of diseases classified elsewhere
CPT/HCPCS: 36415; 71046; 80053; 85025; 93005; 94640; 99284; 99285

== ENCOUNTER → 2024-02-14 20:58 | Outpatient (BNV) | payer OTHER, SELFPAY | PROVIDERS: Emergency Provider Internal Medicine; Visit Provider Internal Medicine Cardiovascular Disease | DX: R00.0 Tachycardia, unspecified (principal) | CPT/HCPCS: 93010 ==

== ENCOUNTER → 2024-02-14 20:58 | Outpatient (BNV) | payer OTHER, SELFPAY | PROVIDERS: Visit Provider Radiology Diagnostic Radiology | DX: R06.02 Shortness of breath (principal) | CPT/HCPCS: 71046 ==

== ENCOUNTER 2024-03-19 19:46 | Emergency (ER) | payer OTHER, SELFPAY ==
--- NOTE | 2024-03-19 19:58 | ECG_ITS ---
Test Reason : SOB Blood Pressure : */* mmHG Vent. Rate : 120 BPM Atrial Rate : 120 BPM P-R Int : 140 ms QRS Dur : 82 ms QT Int : 322 ms P-R-T Axes : 72 57 67 degrees QTcB Int : 455 ms Sinus tachycardia Otherwise normal ECG When compared with ECG of 14-Feb-2024 21:05, No significant change was found Referred By: Raquel Dorsey Electronically Signed By: Thomas Rogers
[2024-03-19 19:59] VITALS: BP 151/98; PULSE 125; RESP 22; TEMP 36.4; O2SAT 94; BMI 35.0
--- NOTE | 2024-03-19 20:00 | ED.CHESTPAIN ---
HPI - Chest Pain General Chief Complaint: Dyspnea Stated Complaint: sob/asthma,nebulizers aren't working Related Data Previous Rx's ?Medication ?Instructions ?Recorded albuterol sulfate 90 mcg/actuation 2 puff inhalation Q4-6H PRN 02/12/24 aerosol inhaler shortness of breath or wheezing #8.5 grams prednisone 20 mg tablet 20 mg PO DAILY #4 tabs 02/12/24 albuterol sulfate 90 mcg/actuation 2 puff inhalation Q6H PRN 03/20/24 aerosol inhaler shortness of breath or wheezing #8.5 grams ciprofloxacin HCl 0.3 % eye drops 1 drp ophthalmic (eye) Q4H #5 mL 03/20/24 prednisone 20 mg tablet 40 mg (2 x 20 mg) PO DAILY #10 tabs 03/20/24 Allergies Allergy/AdvReac Type Severity Reaction Status Date / Time bupropion [From Wellbutrin] Allergy Unknown Verified 03/19/24 23:48 fluoxetine [From Prozac] Allergy Unknown Verified 03/19/24 23:48 PMF Past Medical History Medical History Alcohol use disorder Asthma Social History Social History Household Members: Significant Other Housing: House Do you presently have visiting nurse or other home services: No Patient Tobacco Use Status: Never used Tobacco Substance Use Type: Crack/Cocaine and Marijuana Advance Directives: No Do you have a plan to hurt others: No Plan service: No Physical Exam Vital Signs: Vital Signs: Last Vital Signs Temp 97.6 F 03/19/24 19:59 Pulse 125 H 03/19/24 19:59 Resp 22 H 03/19/24 19:59 BP 151/98 H 03/19/24 19:59 Pulse Ox 94 03/19/24 19:59 O2 Del Method Room Air 03/19/24 19:59 BMI result Body Mass Index 35.0 Course Course Course Narrative: This is a rapid medical exam performed by Raquel Dorsey PA-C. The patient is a 48-year-old male with a history of alcohol use disorder, asthma, who presents with ongoing wheezing and cough cold symptoms for months. Patient states he has had repetitive episodes of asthma exacerbation throughout the winter. Patient here with additional symptoms today. Denies fevers or sick contacts. On exam, the patient does have expiratory wheezes posterior aleman. We will be screening basic labs, viral panel, EKG, chest x-ray, troponin. The patient is stable and can return to the waiting room pending his full medical assessment. Medical Decision Making Lab Data 03/19/24 20:20 03/19/24 20:20 Labs: Lab Results 03/19/24 03/19/24 Range/Units 20:20 22:10 WBC 6.6 (4.8-10.8) X10*3/uL RBC 5.15 (4.60-5.80) X10*6/uL Hgb 17.5 (14.0-18.0) g/dl Hct 48.2 (42.0-52.0) % MCV 93.6 (80.0-98.0) fL MCH 34.0 H (27.0-33.0) pg MCHC 36.3 H (31.0-36.0) g/dl RDW 13.6 (11.0-16.0) % Plt Count 220 D (160-400) X10*3/uL MPV 8.9 L (9.4-12.4) fL Immature Gran % (Auto) 0.5 H (0.0-0.4) % Neut % (Auto) 57.1 (45-73) % Lymph % (Auto) 27.5 (20-40) % [place] % (Auto) 9.4 (2-11) % Eos % (Auto) 4.4 H (0-4) % Baso % (Auto) 1.1 (0-2) % Lymph # (Auto) 1.8 (1.2-4.9) X10*3/uL [place] # (Auto) 0.6 (0.1-1.2) X10*3/uL Eos # (Auto) 0.3 (0.0-0.4) X10*3/uL Baso # (Auto) 0.1 (0.0-0.2) X10*3/uL Abs Immat Gran (auto) 0.03 (0.00-0.03) X10*3/uL Absolute Neuts (auto) 3.8 (2.0-8.3) x10*3/uL Absolute Nucleated RBC 0.000 (0.0-0.012) X10*3/uL Nucleated RBC % (auto) 0.0 (0.0-0.2) /100WBC Sodium 138 (135-145) mmol/L Potassium 4.2 (3.3-5.1) mmol/L Chloride 108 (96-108) mmol/L Carbon Dioxide 22 (22-29) mmol/L Anion Gap 12 (12-20) BUN 15 (9-16) mg/dL Creatinine 0.89 (0.5-1.4) mg/dL Estim Creat Clear Calc 112.7 Estimated GFR > 60 Random Glucose 133 H (60-115) mg/dL Calcium 8.2 L D (8.4-10.2) mg/dL Magnesium 2.6 (1.6-2.6) mg/dL Troponin I High Sens < 2.7 (<3.5-35.0) ng/L B-Natriuretic Peptide < 10 (<100) pg/mL Influenza Type A (PCR) NEGATIVE (Negative) Influenza Type B (PCR) NEGATIVE (Negative) RSV RNA Qual (PCR) NEGATIVE (Negative) SARS-CoV-2 RNA (RT-PCR) NEGATIVE (Negative) Discharge Plan Discharge Clinical Impression: Asthma with exacerbation Patient Disposition: Left W/O Completing Treatment Prescriptions: No Action albuterol sulfate 90 mcg/actuation HFA aerosol inhaler 2 puff inhalation Q4-6H PRN (Reason: shortness of breath or wheezing) Qty: 8.5 0RF prednisone 20 mg tablet 20 mg PO DAILY Qty: 4 0RF Rx Instructions: take with food prednisone 20 mg tablet 40 mg PO DAILY Qty: 10 0RF albuterol sulfate 90 mcg/actuation HFA aerosol inhaler 2 puff inhalation Q6H PRN (Reason: shortness of breath or wheezing) Qty: 8.5 0RF ciprofloxacin HCl 0.3 % drops 1 drp ophthalmic (eye) Q4H Qty: 5 0RF Rx Instructions: administer while awake Discharge Date/Time: 03/19/24 21:32
--- OUTSIDE RECORDS SUMMARY | 2024-03-19 21:01 | XMS_ITS | Clinical Summary ---
Author Organization [facility] Address [address] [place] [address] Care Team Providers Care Marine Meteorologist Name Role Phone Kyung Lundberg MD Primary Care Provider [phone] Surgical History Surgery Date Site/Laterality Comments UMBILICAL HERNIA REPAIR 1978 PROCEDURE:UMBILICAL HERNIA REPAIR VASECTOMY 2009 PROCEDURE:VASECTOMY UMBILICAL HERNIA REPAIR 1978 PROCEDURE:UMBILICAL HERNIA REPAIR OTHER SURGICAL HISTORY 04/02/2017 PROCEDURE:EXCISION RIGHT CHEST LIPOMA ;COMMENT:DR CALLAHAN HERNIA REPAIR 2019 Right PROCEDURE:INGUINAL HERNIA REPAIR;COMMENT:Procedure: ROBOTIC REPAIR INGUINAL HERNIA W/ MESH; Surgeon: Lucio Zamora MD; Location: [facility]; Service: General; Laterality: Right; Medical History Medical History Date Comments Fatty liver DX:Fatty liver Umbilical hernia 1978 DX:Umbilical he rnia Schizoaffective disorder, bi polar type ([facility]/HCC) DX:Schizoaffective disorder, bipolar type ([facility]) Asthma DX:Asthma Schizo-affective schizophren ia (CMS/HCC) DX:Schizo-affective schizoph adam ([facility]) Anxiety DX:Anxiety Antisocial personality disor crystal ([facility]) DX:Antisocial personality di sorder ([facility]) GERD (gastroesophageal reflux disease) DX:GERD (gastroesophageal reflux disease) UREÑA (dyspnea on exertion) DX:UREÑA (dyspnea on exertion) Urinary retention DX:Urinary ret ention Visual impairment DX:Visual impairment;COMMENT:contacts Covid-19 12/19/2021 DX:COVID-19 Family History Medical History Relation Name Comments COPD Father Cancer Mother Relation Name Status Comments Father Alive Mother Alive Sister Alive Social History Tobacco Use Types Packs/Day Years Used Date Smoking Tobacco: Never Smokeless Tobacco: Never Alcohol Use Standard Drinks/Week Comments Not Currently 28 (1 standard drink = 0.6 oz pu re alcohol) Sex and Gender Information Value Date Recorded Sex Assigned at Not on file Gender Identity Not on file Sexual Orientation Not on file Obstetrics History Last Filed Vital Signs Vital Sign Reading Time Taken Comments Blood Pressure 128/82 01/11/2023 11:12 AM EST Sitting Left arm Pulse 77 01/11/2023 11:12 AM EST Temperature - - Respiratory Rate - - Oxygen Saturation - - Inhaled Oxygen Concentration - - Weight 68 kg (150 lb) 01/11/2023 11:12 AM EST Height 167.6 cm (5' 6 ) 01/11/2023 11:1 2 AM EST Body Mass Index 24.21 01/11/2023 11:12 AM EST Plan of Treatment Health Maintenance Due Date Last Done Comments Pneumococcal Vaccine: Pediatrics (0 to 5 Years) and At-Risk Patients (6 to 64 Years) (1 of 2 - PCV) 1982 Hepatitis A Vaccines (1 of 2 - Risk 2-dose series) 10/27/1995 Colorectal Cancer Screening: Colonoscopy 01/14/2022 Depression Screening 01/14/2022 HIV Screening 01/14/2022 Hepatitis C Screening 01/14/2022 Social Influencers of Health Screening 01/14/2022 COVID-19 Vaccine ( season) 2023 09/08/2020, 08/11/2020 Influenza Vaccine (#1) 2023 07/18/2019, 2018 Cholesterol Screening (Lipid Panel) 07/27/2028 07/28/2023, 07/28/2023, 01/11/2023, Additional history exists DTaP,Tdap,and Td Vaccines (2 - Td or Tdap) 06/20/2033 06/21/2023 MMR Vaccines Aged Out 05/28/2018 No longer eligi ble based on patient's age to complete this topic Hepatitis B Vaccines Completed 01/02/2019, 07/29/2018, 07/03/2018 HIB Vaccines Aged Out No longer eligi ble based on patient's age to complete this topic HPV Vaccines Aged Out No longer eligi ble based on patient's age to complete this topic IPV Vaccines Aged Out No longer eligi ble based on patient's age to complete this topic Meningococcal ACWY Vaccine Aged Out N o longer eligible based on patient's age to complete this topic RSV Immunization Patients Under 20 months Aged Out No longer eligible based on patient's age to complete this topic Varicella Vaccines Aged Out No longer eligible based on patient's age to complete this topic Medical Devices Implanted Type Area Photograph Developer Device Identifier Shelf Expiration Date Model / Serial / Lot Mesh 3dmax Medium 5.3x3.1in Lightweight Large Pore Knit - [id number] Implanted:Qty: 1 on 2019 by Lucio Zamora MD Right: [employer] 06/09/2023 [id number] / / [id number] Care Teams Marine Meteorologist Relationship Specialty Start Date End Date Kyung Lundberg MD PCP - General Internal Medicine 08/11/16
--- OUTSIDE RECORDS SUMMARY | 2024-03-19 21:01 | XMS_ITS | Continuity of Care Document ---
Author Organization [facility] Address [address] [place] [address] Phone Care Team Providers Care User Interface Developer Name Role Phone Admin, Support Unavailable Unavailable Advance Directives Directive Yes / No Effective Date File Name No Information Encounters Encounter Description Practice Location Reason(s) For Visit Diagnoses Date Provider [facility], [address] [place] [address], [address] [place] [address] tel:[phone] PBC / Admin Use No Information 2020 Admin Support. [address] [place] [address], [facility]. tel:[phone] [facility], [address] [place] [address], [address] [place] [address] tel:[phone] [facility] [address] Cough 2019 Eleck Audra. [address] [place] [address], [address] [place] [address], . tel:[phone] [facility], [address] [place] [address], [address] [place] [address] tel:[phone] [facility] [address] Cough 2019 Eleck Audra. [address] [place] [address], [address] [place] [address], . tel:[phone] [facility], [address] [place] [address], [address] [place] [address] tel:[phone] [facility] [address] Cough 2019 Eleck Audra. [address] [place] [address], [address] [place] [address], . tel:[phone] Family History Family Member Type Diagnosis Age At Onset No Information Payers Payer name Insurance type Covered republican ID Authorlucinda foreman(s) Medicare [id number] [facility] [id number] Social History Type Description Quantity Date Captured Comments Sex Male Smoking Status No Information Sexual Orientation Choose not to disclose Gender Identity Choose not to disclose Chief Complaint And Reason For Visit No Information History Of Present Illness Encounter Date Complaint History Of Prese nt Illness No Information Instructions Date Instruction Additional Infor mation No Information Assessments Type Assessment Date No Information
--- OUTSIDE RECORDS SUMMARY | 2024-03-19 21:01 | XMS_ITS | Clinical Summary ---
Author Organization [facility] Address [address] [place] [address] Care Team Providers Care Manager Transition Name Role Phone Kyung Lundberg MD Primary Care Provider [phone] Allergies Active Allergy Reactions Criticality Noted Date Comments Escitalopram Other (See Comments) 09/18/2016 Fluoxetine 09/18/2016 Bupropion Other (See Comments) 09/18/2016 Medications Medication Sig Dispensed Refills Start Date End Date Status ipratropium-albute rol (DUO-NEB) 0.5-2.5 mg/mL nebulizerIndicatio ns:Asthma Take 3 mL by nebulization 4 (four) times a day. inhale contents of 1 vial every 6 hours if needed. No refills after 05/28/22 until patient scheduled a follow up appointment. 360 mL 0 05/28/2022 Active Trelegy Ellipta 200-62.5-25 MCG/ACT AEPBIndications:As thma INHALE 1 PUFF DAILY. RINSE MOUTH AFTER USE 0 07/27/2022 Active EPINEPHrine 0.3 MG/0.3ML SOAJIndications:An aphylaxis inject 0.3 milliliters ( 0.3 milligrams ) intramuscularly in OUTE... (REFER TO PRESCRIPTION NOTES). 0 08/01/2022 Active albuterol 108 (90 Base) MCG/ACT inhalerIndications :Asthma inhale 2 puffs by mouth and INTO THE LUNGS every 4 hours if neede... (REFER TO PRESCRIPTION NOTES). 0 12/21/2022 Active Active Problems Problem Noted Date Diagnosed Date Bipolar disorder, current episode depressed, sev ere 08/01/2023 Alcohol abuse 07/28/2023 Asthma 11/07/2021 Otitis externa 11/07/2021 Local infection of skin and subcutaneous tissue 11/07/2021 Benign prostatic hyperplasia with incomplete bladder emptying 11/08/2019 Rash and other nonspecific skin eruption 020 Earache 06/03/2019 Folliculitis 06/03/2019 Seborrheic dermatitis 06/02/2019 Multiple personality disorder 08/14/2018 Strain of left deltoid muscle 07/29/2018 Lateral epicondylitis of left elbow 07/29/2018 Strain of left shoulder 07/29/2018 Mild intermittent asthma without complication Schizoaffective disorder, bipolar type 9 Intertrigo 10/22/2017 Physical exam 11/23/2016 Resolved Problems Problem Noted Date Diagnosed Date Resolved Date Severe persistent asthma wit h status asthmaticus 04/29/2021 04/30/2021 Immunizations Name Administration Dates Next Due Covid-19 (Moderna 12+) 100mcg/0.5mL dosage 09/08,08/11/2020 Hepatitis B (Adult 3 dose)/( Adolescent 2 dose) Engerix 01/02/2019,07/29/2018,07/03/2018 Influenza Trivalent (Fluzone /Afluria) 5.0mL Multi-dose Vial 07/18/2019,11/23/2018 MMR 05/28/2018 Tdap 06/21/2023 Family History Medical History Relation Name Comments COPD Father Cancer Mother Relation Name Status Comments Father Alive Mother Alive Sister Alive Social History Tobacco Use Types Packs/Day Years Used Date Smoking Tobacco: Never Smokeless Tobacco: Never Tobacco Cessation:Counseling Given: Not Answered Alcohol Use Standard Drinks/Week Comments Not Currently 28 (1 standard drink = 0.6 oz pu re alcohol) Sex and Gender Information Value Date Recorded Sex Assigned at Male 07/28/2018 4:35 PM EDT Gender Identity Male 07/28/2018 4:35 PM EDT Sexual Orientation Straight 07/28/2023 3: 56 PM EDT Job Start Date Occupation Industry Not on file Not on file Not on file Last Filed Vital Signs Vital Sign Reading Time Taken Comments Blood Pressure 135/96 08/01/2023 6:00 AM EDT Pulse 88 08/01/2023 6:00 AM EDT Temperature 36 ??C (96.8 ??F) 08/01/2023 6:00 AM EDT Respiratory Rate 16 08/01/2023 6:00 AM EDT Oxygen Saturation 98% 08/01/2023 6:00 AM EDT Inhaled Oxygen Concentration - - Weight 68 kg (150 lb) 07/28/2023 8:32 PM EDT Height 167.6 cm (5' 6 ) 07/28/2023 8:32 PM EDT Body Mass Index 24.21 07/28/2023 8:32 PM EDT Plan of Treatment Health Maintenance Due Date Last Done Comments Pneumococcal Vaccine (1 of 2 - PCV) 1982 Colon Cancer Screening (Colonoscopy) 2021 COVID-19 Vaccine (3 - season) 2023 09/08/2020, 08/11/2020 Influenza Vaccine (#1) 2023 07/18/2019, 2018 BMI Counseling 01/12/2024 01/11/2023, 05/2022, 08/08/2022, Additional history exists Depression Screening 01/12/2024 01/11/2023, 01/11/2023, 07/04/2020, Additional history exists Preventative Health Evaluation 01/12/2024 01/11/2023, 07/04/2020, 07/04/2020, Additional history exists DTap / Tdap / Td (2 - Td or Tdap) 06/20/2033 06/21/2023 Hepatitis B Vaccines Completed 01/02/2019, 07/29/2018, 07/03/2018 Hepatitis C Screening Completed 10/30/2019 , 02/24/2019, 06/27/2018, Additional history exists RSV Ped < 20 months Aged Out No longe r eligible based on patient's age to complete this topic Medical Devices Implanted Type Area Movie Projectionist Device Identifier Shelf Expiration Date Model / Serial / Lot Mesh 3dmax Medium 5.3x3.1in Lightweight Large Pore Knit - [id number] - [id number] Implanted:Qty: 1 on 2019 by Lucio Zamora MD at [facility] Right: [employer] 06/09/2023 [id number] / / [id number] Advance Directives For more information, please contact: [phone] Documents on File Type Date Recorded Patient Choker Hooker Expl anation Advance Directive and Living Will 2019 7:59 AM Latest Code Status on File Code Status Date Activated Date Inactivated Comments Code A- Full Code 07/28/2023 10:58 AM 08/01/2023 4:10 PM This code status was ascertained in the following way: discussion with patient . Code Status History Code Status Date Activated Date Inactivated Comments Code A- Full Code 04/29/2021 10:33 AM 04/30/2021 6:01 PM This code status was ascertained in the following way: discussion with patient . Care Teams Manager Transition Relationship Specialty Start Date End Date Kyung Lundberg MD [facility] [place] [address] PCP - General Internal Medicine 08/11/16
--- NOTE | 2024-03-19 21:30 | PC.NURSE ---
pt reports he wants to LWCT. pt educated on importance of staying. pt declined. states he is feeling much better since [employer]ODUCTION WORK[employer]. pt has significant other pick him up from [facility].
[2024-03-19 22:17] LABS: Influenza A PCR NEGATIVE (Negative); Influenza B PCR NEGATIVE (Negative); Resp Syncy Virus RNA Qual PCR NEGATIVE (Negative); SARS COV2 PCR INHOUSE NEGATIVE (Negative)
[2024-03-19 22:53] LABS: Basophils Absolute Auto 0.1 X10*3/uL (0.0-0.2); Basophils Percent Auto 1.1 % (0-2); Eosinophils Absolute Auto 0.3 X10*3/uL (0.0-0.4); Eosinophils Percent Auto 4.4 % (0-4); Hematocrit 48.2 % (42.0-52.0); Hemoglobin 17.5 g/dl (14.0-18.0); Imm Gran Abs Auto 0.03 X10*3/uL (0.00-0.03); Imm Gran Pct Auto 0.5 % (0.0-0.4); Lymphocytes Absolute Auto 1.8 X10*3/uL (1.2-4.9); Lymphocytes Percent Auto 27.5 % (20-40); MANUAL DIFF FLAG NO; Mean Corpuscular HGB Conc 36.3 g/dl (31.0-36.0); Mean Corpuscular Volume 93.6 fL (80.0-98.0); Mean Platelet Volume 8.9 fL (9.4-12.4); Monocytes Absolute Auto 0.6 X10*3/uL (0.1-1.2); Monocytes Percent Auto 9.4 % (2-11); Neutrophils Absolute Auto 3.8 x10*3/uL (2.0-8.3); Neutrophils Percent Auto 57.1 % (45-73); Platelet Count 220 X10*3/uL (160-400); Red Blood Count 5.15 X10*6/uL (4.60-5.80); Red Cell Distribution Width 13.6 % (11.0-16.0); White Blood Count 6.6 X10*3/uL (4.8-10.8)
[2024-03-19 23:14] LABS: Anion Gap 12 (12-20); Blood Urea Nitrogen 15 mg/dL (9-16); Calcium 8.2 mg/dL (8.4-10.2); Carbon Dioxide 22 mmol/L (22-29); Chloride 108 mmol/L (96-108); Creatinine Clr Calc Pharmacy 112.7; Estimated Glomerular Filt Rate > 60; Glucose Random 133 mg/dL (60-115); Magnesium 2.6 mg/dL (1.6-2.6); Potassium 4.2 mmol/L (3.3-5.1); Sodium 138 mmol/L (135-145)
[2024-03-19 23:18] LABS: B Type Natriuretic Peptide < 10 pg/mL (<100); Troponin-I High Sensitivity < 2.7 ng/L (<3.5-35.0)
== END 2024-03-19 21:32 | disposition left against medical advice (07) ==
PROVIDERS: Physician Assistant Medical; Emergency Provider Emergency Medicine
DX: J45.901 Unspecified asthma with (acute) exacerbation (principal); R06.02 Shortness of breath; R07.89 Other chest pain
CPT/HCPCS: 0241U; 80048; 83735; 83880; 84484; 85025; 93005; 99283

== ENCOUNTER → 2024-03-19 19:58 | Outpatient (BNV) | payer OTHER, SELFPAY | PROVIDERS: Emergency Provider Emergency Medicine; Visit Provider Internal Medicine Cardiovascular Disease | DX: R00.0 Tachycardia, unspecified (principal); R06.02 Shortness of breath | CPT/HCPCS: 93010 ==

== ENCOUNTER 2024-03-19 23:16 | Emergency (ER) | payer OTHER, SELFPAY ==
[2024-03-19 23:46] VITALS: BP 145/91; PULSE 119; RESP 22; TEMP 36.6; O2SAT 91; BMI 36.6
--- NOTE | 2024-03-19 23:49 | MHC.EDTECH ---
pt changed over on arrival and placed on the diagnostic cardiac sonographer.
--- NOTE | 2024-03-20 00:46 | ED.SOB ---
HPI - SOB/Dyspnea General Chief Complaint: Upper Respiratory Symptoms Stated Complaint: diff breathing, sob Time Seen by Provider: 03/20/24 00:36 Source: patient Mode of arrival: EMS Limitations: no limitations History of Present Illness ED Provider: HPI Narrative: Patient's history of asthma umbilical of increased shortness a breath in coughing for last few days saturating 89% at room air when EMS arrived on arrival it is 92% cough is mostly dry patient came here yesterday but not seen by the provider COVID flu RSV negative no fever no chills cough is mostly dry patient also complaining of redness of both eyes patient wear contact lenses has clear discharge Related Data Previous Rx's ?Medication ?Instructions ?Recorded albuterol sulfate 90 mcg/actuation 2 puff inhalation Q4-6H PRN 02/12/24 aerosol inhaler shortness of breath or wheezing #8.5 grams prednisone 20 mg tablet 20 mg PO DAILY #4 tabs 02/12/24 albuterol sulfate 90 mcg/actuation 2 puff inhalation Q6H PRN 03/20/24 aerosol inhaler shortness of breath or wheezing #8.5 grams ciprofloxacin HCl 0.3 % eye drops 1 drp ophthalmic (eye) Q4H #5 mL 03/20/24 prednisone 20 mg tablet 40 mg (2 x 20 mg) PO DAILY #10 tabs 03/20/24 Allergies Allergy/AdvReac Type Severity Reaction Status Date / Time bupropion [From Wellbutrin] Allergy Unknown Verified 03/19/24 23:48 fluoxetine [From Prozac] Allergy Unknown Verified 03/19/24 23:48 Review of Systems Review of Systems: Yes all other systems are reviewed and are negative [facility] Past Medical History Medical History Alcohol use disorder Asthma Social History Social History Household Members: Significant Other Housing: House Do you presently have visiting nurse or other home services: No Patient Tobacco Use Status: Never used Tobacco Substance Use Type: Crack/Cocaine and Marijuana Advance Directives: No Do you have a plan to hurt others: No Plan service: No Physical Exam Vital Signs: Vital Signs: Last Vital Signs Temp 98.0 F 03/20/24 03:02 Pulse 110 H 03/20/24 03:02 Resp 20 03/20/24 03:02 BP 139/88 03/20/24 03:02 Pulse Ox 95 03/20/24 03:02 O2 Del Method Room Air 03/20/24 03:02 BMI result Body Mass Index 36.6 Appearance: Alert. Oriented X3. No acute distress. ENT: Pharynx normal. Oral Mucosa moist eyes: Inflamed conjunctiva no discharge Neck: Normal inspection. Neck supple. CVS: Normal heart rate and rhythm. Pulses normal. Respiratory: No respiratory distress. Equal air entry bilateral, bilateral wheezing Abdomen: Soft and nontender. Bowel sounds are present, no mass palpable, no CVA tenderness Skin: Skin warm and dry. Normal skin color. Normal skin turgor. Extremities: No lower extremity edema. No calf tenderness Neuro: Oriented X 3. No motor deficit. Medications Administered Discontinued Medications Generic Name Dose Route Start Last Admin Trade Name Freq PRN Reason Stop Dose Admin Albuterol Sulfate 2.5 mg/ 0 mg 03/20/24 01:00 03/20/24 02:30 Albuterol/Ipratropium 3 ml INHALE 03/20/24 01:01 1 dose ONCE ONE Administration Prednisone 40 mg 03/20/24 01:00 03/20/24 01:09 Prednisone 20 Mg Tablet PO 03/20/24 01:01 40 mg ONCE ONE Administration Medical Decision Making Medical Decision Making MDM Narrative: Patient with asthma with conjunctivitis secondary to contact lens patient advised not to use contact lenses till he gets completely better will prescribe him prednisone patient is saturating 94-95% at room air Discharge Plan Discharge Clinical Impression: Asthma, Conjunctivitis Patient Disposition: Home, Self-Care Instructions: Asthma (ED), Conjunctivitis (ED) Additional Instructions: Use your inhaler as prescribed Prednisone as prescribed Follow with your PCP if not better Do not wear contact lenses till your eyes get better Eyedrops as prescribed Prescriptions: New prednisone 20 mg tablet 40 mg PO DAILY Qty: 10 0RF albuterol sulfate 90 mcg/actuation HFA aerosol inhaler 2 puff inhalation Q6H PRN (Reason: shortness of breath or wheezing) Qty: 8.5 0RF ciprofloxacin HCl 0.3 % drops 1 drp ophthalmic (eye) Q4H Qty: 5 0RF Rx Instructions: administer while awake No Action albuterol sulfate 90 mcg/actuation HFA aerosol inhaler 2 puff inhalation Q4-6H PRN (Reason: shortness of breath or wheezing) Qty: 8.5 0RF prednisone 20 mg tablet 20 mg PO DAILY Qty: 4 0RF Rx Instructions: take with food Print Language: Greenlandic
[2024-03-20] MEDS: predniSONE 20 MG TABLET 40 MG PO (01:09)
--- NOTE | 2024-03-20 01:09 | PC.NURSE ---
Pt placed on 2L NC sleeping
[2024-03-20 01:36] VITALS: PULSE 99; RESP 16; O2SAT 96
[2024-03-20] MEDS: Albuterol Sulfate 2.5 MG, Albuterol/Iprat 2.5/0.5MG 3 ML 3 ML INHALE (02:30)
[2024-03-20 02:31] VITALS: PULSE 100; RESP 19; O2SAT 97
[2024-03-20 03:02] VITALS: BP 139/88; PULSE 110; RESP 20; TEMP 36.7; O2SAT 95
[2024-03-20 03:40] VITALS: BP 139/88; PULSE 110; RESP 20; TEMP 36.7; O2SAT 95
== END 2024-03-20 03:40 | disposition home or self-care (01) ==
PROVIDERS: Emergency Provider Internal Medicine
DX: H10.9 Unspecified conjunctivitis (principal); J45.909 Unspecified asthma, uncomplicated; R06.02 Shortness of breath; Z03.818 Encounter for observation for suspected exposure to other biological agents ruled out; Z79.899 Other long term (current) drug therapy
CPT/HCPCS: 0241U; 80048; 83735; 83880; 84484; 85025; 93005; 94640; 99283; 99284

== ENCOUNTER 2024-04-19 11:53 | Emergency (ER) | payer OTHER, SELFPAY ==
--- NOTE | ~2024-04-19 | XR_ITS ---
CLINICAL HISTORY: cough Chest Radiograph Comparison: 02/14/24 Findings: No cardiomegaly. Normal mediastinal contours. No pneumothorax. No opacity. No pleural effusion. Normal upper abdomen. No acute fracture. Impression: No acute findings. This document has been electronically signed by: Gina Hunt MD on 04/19/2024 14:22:18
[2024-04-19 12:05] VITALS: BP 154/107; PULSE 110; RESP 20; TEMP 36.8; O2SAT 94; BMI 32.9
--- NOTE | 2024-04-19 12:14 | ECG_ITS ---
Test Reason : DYSPNEA Blood Pressure : */* mmHG Vent. Rate : 105 BPM Atrial Rate : 105 BPM P-R Int : 142 ms QRS Dur : 88 ms QT Int : 356 ms P-R-T Axes : 50 -4 91 degrees QTcB Int : 470 ms Sinus tachycardia Inferior infarct , age undetermined Abnormal ECG When compared with ECG of 19-Mar-2024 20:11, Questionable change in QRS axis Nonspecific T wave abnormality now evident in Lateral leads Referred By: Cha Lockhart Electronically Signed By: JUILEN ROMO
--- OUTSIDE RECORDS SUMMARY | 2024-04-19 12:17 | XMS_ITS | Clinical Summary ---
Author Organization [facility] Address [address] [place] [address] Care Team Providers Care Supervisor Wet End Name Role Phone Kyung Lundberg MD Primary Care Provider [phone] Allergies Active Allergy Reactions Criticality Noted Date [...] this topic Medical Devices Implanted Type Area Exhauster Engineer Device Identifier Shelf Expiration Date Model / Serial / Lot Mesh 3dmax Medium 5.3x3.1in Lightweight Large Pore Knit - [id number] - [id number] Implanted:Qty: 1 on 2019 by Lucio Zamora MD at [facility] Right: [employer] 06/09/2023 [id number] / / [id number] Advance Directives For more information, please contact: [phone] Documents on File Type Date Recorded Patient Aluminum Hydroxide Process Operator Expl anation Advance Directive and Living Will [...] way: discussion with patient . Care Teams Supervisor Wet End Relationship Specialty Start Date End Date Kyung Lundberg MD [facility] [place] [address] PCP - General Internal Medicine 08/11/16
--- OUTSIDE RECORDS SUMMARY | 2024-04-19 12:17 | XMS_ITS | Clinical Summary ---
Author Organization [facility] Address [address] [place] [address] Care Team Providers Care Vice President Financial Name Role Phone Kyung Lundberg MD Primary Care Provider [phone] Allergies Active Allergy Reactions Criticality Noted Date Comments Bupropion Other 09/18/2016 Escitalopram Other 09/18/2016 Fluoxetine 09/18/2016 Medications albuterol HFA (Proventil HFA) 90 mcg/actuation inhaler albuterol 108 (90 Base) MCG/ACT inhaler-Sig: inhale 2 puffs by mouth and INTO THE LUNGS every 4 hours if neede... (REFER TO PRESCRIPTION NOTES). Active EPINEPHrine (EpiPen) 0.3 mg/0.3 mL injection Sig: inject 0.3 milliliters ( 0.3 milligrams ) intramuscularly in OUTE... (REFER TO PRESCRIPTION NOTES). Active ipratropium-al buteroL (DUONEB) 0.5-2.5 mg/3 mL nebulizer solution Sig - Route: Take 3 mL by nebulization 4 (four) times a day. inhale contents of 1 vial every 6 hours if needed. No refills after 05/28/22 until patient scheduled a follow up appointment. Active fluticasone-um eclidinium-julia anterol (Trelegy Ellipta) 200-62.5-25 mcg inhaler Inhale 1 puff (200 mcg total) by mouth 1 (one) time each day. Rinse mouth after use. Active Active Problems Problem Noted Date Diagnosed Date Bipolar disorder, current episode depressed, sev ere 08/01/2023 Alcohol abuse 07/28/2023 Asthma 11/07/2021 Local infection of skin and subcutaneous tissue 11/07/2021 Otitis externa 11/07/2021 Benign prostatic hyperplasia with incomplete bladder emptying 11/08/2019 Rash and other nonspecific skin eruption 020 Earache 06/03/2019 Folliculitis 06/03/2019 Seborrheic dermatitis 06/02/2019 Multiple personality disorder 08/14/2018 Lateral epicondylitis of left elbow 07/29/2018 Strain of left deltoid muscle 07/29/2018 Strain of left shoulder 07/29/2018 Mild intermittent asthma without complication Schizoaffective disorder, bipolar type 9 Intertrigo 10/22/2017 Immunizations Name Administration Dates Next Due Hepatitis B (Ibhdcln-M-Ackpn , Recombivax HB-Adult) 19yo and older 01/02/2019,07/29/2018,07/03/2018 Influenza trivalent, with pr eservative (Fluzone; Afluria) 6mo and older 07/18/2019,11/23/2018 MMR, measles mumps and rubel la Live (Priorix; M-M-R II) 12mo and older 05/28/2018 Tdap Tetanus diptheria acell ular pertussis (Boostrix; Adacel) 7yo and older 06/21/2023 Surgical History Surgery Date Site/Laterality Comments UMBILICAL HERNIA REPAIR 1978 PROCEDURE:UMBILICAL HERNIA REPAIR VASECTOMY 2009 PROCEDURE:VASECTOMY UMBILICAL HERNIA REPAIR 1978 PROCEDURE:UMBILICAL HERNIA REPAIR OTHER SURGICAL HISTORY 04/02/2017 PROCEDURE:EXCISION RIGHT CHEST LIPOMA ;COMMENT:DR CALLAHAN HERNIA REPAIR 2019 Right PROCEDURE:INGUINAL HERNIA REPAIR;COMMENT:Procedure: ROBOTIC REPAIR INGUINAL HERNIA W/ MESH; Surgeon: Lucio Zamora MD; [facility]; Service: General; Laterality: Right; Medical History Medical History Date Comments Fatty liver DX:Fatty liver Umbilical hernia 1978 DX:Umbilical he rnia Schizoaffective disorder, bi polar type ([facility]/HCC) DX:Schizoaffective disorder, bipolar type ([facility]) Asthma DX:Asthma Schizo-affective schizophren ia (CMS/HCC) DX:Schizo-affective schizoph adam ([facility]) Anxiety DX:Anxiety Antisocial personality disor crystal ([facility]/HCC) DX:Antisocial personality di sorder ([facility]) GERD (gastroesophageal reflux disease) DX:GERD (gastroesophageal [...] Recorded Sex Assigned at Not on file Legal Sex Male 7:18 AM EST Gender Identity Not on file Sexual Orientation [...] Health Maintenance Due Date Last Done Comments Hepatitis A Vaccines (1 of 2 - Risk 2-dose series) 10/27/1995 Pneumococcal Vaccine: Pediatrics (0 to 5 Years) and At-Risk Patients (6 to 64 Years) (1 of 2 - PCV) 10/27/1995 Colorectal Cancer Screening: Colonoscopy 01/14/2022 Depression Screening 01/14/2022 Social Influencers of Health Screening [...] 07/29/2018, 07/03/2018 Hepatitis C Screening Completed 10/30/2019 HIV Screening Completed 01/11/2023 HIB Vaccines Aged Out No longer eligi [...] patient's age to complete this topic Meningococcal B Vacine Aged Out No lo nger eligible based on patient's age to complete this topic RSV Immunization Patients Under 20 months Aged Out No longer eligible based on patient's age to complete this topic Varicella Vaccines Aged Out No longer eligible based on patient's age to complete this topic Medical Devices Implanted Type Area Senior Research Executive Device Identifier Shelf Expiration Date Model / Serial / Lot Mesh 3dmax Medium 5.3x3.1in Lightweight Large Pore Knit - [id number] Implanted:Qty: 1 on 2019 by Lucio Zamora MD Right: [employer] 06/09/2023 [id number] / / [id number] Procedures Procedure Name Priority Date/Time Associated Diagnosis Comments LIPID PANEL Routine 07/28/2023 HIV SCREENING Routine 01/11/2023 HEPATITIS C SCREENING Routine 10/30/2019 from Last 3 Months or Most Recently Relevant to Health Maintenance Results * (ABNORMAL) Lipid panel (07/28/2023) [facility] LDL/HDL Ratio 2 Triglycerides 97 0 - 149 mg/dL Cholesterol 214(A) 0 - 199 mg/dL HDL 114 >=40 mg/dL LDL Cholesterol 81 0 - 99 mg/dL Blood Venous blood specimen / Unknown Historical Provider LAB BLOOD ORDERABLES Elizabeth l Result * HIV Screening (01/11/2023) Pathologist [facility] HIV Screening abstracted us Historical Provider HEALTH MAINTENANCE Final Result * Hepatitis C Screening (10/30/2019) Pathologist [facility] Hepatitis C Screening abstracted us Historical Provider MD HEALTH MAINTENANCE Final Result from Last 3 Months or Most Recently Relevant to Health Maintenance Care Teams Vice President Financial Relationship Specialty Start Date End Date Kyung Lundberg MD PCP - General Internal Medicine 08/11/16
--- NOTE | 2024-04-19 12:36 | ED.PSYCH ---
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 He denies SI/HI. He states he has been hallucinating. He denies trauma head falls or drug use. He states he always has to clear his throat. He has switched from multiple personalities on interview. Does not take any medications at home he doesn't like psychiatric meds complaint: hallucinations and alcohol abuse Onset (ago): week(s) Duration: intermittent History of same: Yes Relieving factors: none Exacerbating factors: alcohol Context: not taking psychiatric medications Associated psychiatric symptoms: depression, racing thoughts, auditory hallucinations and visual hallucinations Associated symptoms: denies other symptoms Treatments prior to arrival: none Related Data Previous Rx's ?Medication ?Instructions ?Recorded albuterol sulfate 90 mcg/actuation 2 puff inhalation Q4-6H PRN 02/12/24 aerosol inhaler shortness of breath or wheezing #8.5 grams prednisone 20 mg tablet 20 mg PO DAILY #4 tabs 02/12/24 albuterol sulfate 90 mcg/actuation 2 puff inhalation Q6H PRN 03/20/24 aerosol inhaler shortness of breath or wheezing #8.5 grams ciprofloxacin HCl 0.3 % eye drops 1 drp ophthalmic (eye) Q4H #5 mL 03/20/24 prednisone 20 mg tablet 40 mg (2 x 20 mg) PO DAILY #10 tabs 03/20/24 Allergies Allergy/AdvReac Type Severity Reaction Status Date / Time bupropion [From Wellbutrin] Allergy Unknown Verified 04/19/24 12:12 fluoxetine [From Prozac] Allergy Unknown Verified 04/19/24 12:12 Review of Systems Review of Systems: Constitutional : No Fever, No Chills ENT/Mouth : No Ear Pain, No Nasal Congestion, No sore throat Eyes: No Eye Pain, No Swelling, No Redness Cardiovascular : No Chest Pain, No SOB Respiratory : No Cough, No Sputum, No Dyspnea Gastrointestinal : No Nausea, No Vomiting, No Diarrhea, No Hematochezia, No Melena Genitourinary : No Dysuria, No Urinary Frequency, No Hematuria Musculoskeletal : No Myalgias Skin : No Skin Lesions, No rash Neuro : No Weakness, No Numbness, No Paresthesias, No Dizziness, No Headache Psych : positive Anxiety, positive Depression, no SI/HI All other systems reviewed and are negative [facility] Past Medical History Attestation statement: The following information was validated with the patient. Source: old records reviewed Medical History Alcohol use disorder Asthma Social History Social History Household Members: Significant Other Housing: House Do you presently have visiting nurse or other home services: No Patient Tobacco Use Status: Never used Tobacco Smoked in Last 30 Days: No Use of substances other than those prescribed or required for medical reasons: No Substance Use Type: Crack/Cocaine and Marijuana Advance Directives: No Advance Directives Information Provided: No Do you have a plan to hurt others: No Plan service: No Physical Exam Vital Signs: Vital Signs: Last Vital Signs Temp 98.2 F 04/19/24 12:05 Pulse 114 H 04/19/24 12:54 Resp 18 04/19/24 12:54 BP 154/107 H 04/19/24 12:05 Pulse Ox 94 04/19/24 12:05 O2 Del Method Room Air 04/19/24 12:05 BMI result Body Mass Index 32.9 Appearance: Alert. Oriented X3. anxious responding to internal stimuli mild acute distress. Eyes: Pupils equal, round and reactive to light. ENT: Pharynx normal. no tongue fasciculations Neck: Normal inspection. Neck supple. CVS: tachycardic heart rate and rhythm. Pulses normal. Respiratory: No respiratory distress. Breath sounds normal. Abdomen: Soft and nontender. Skin: Skin warm and dry. Normal skin color. Normal skin turgor. Extremities: No lower extremity edema. Neuro: Oriented X 3. No motor deficit. No sensory deficit. CN2-12 intact Medications Administered Generic Name Dose Route Start Last Admin Trade Name Freq PRN Reason Stop Dose Admin Calcium Gluconate 2 gm in 100 mls @ 50 mls/hr 04/19/24 13:18 04/19/24 13:44 Calcium Gluconate IV 04/19/24 15:17 50 mls/hr ONCE ONE Administration Discontinued Medications Generic Name Dose Route Start Last Admin Trade Name Daniel PRN Reason Stop Dose Admin Albuterol/Ipratropium 3 ml 04/19/24 12:52 04/19/24 12:54 Albuterol/Iprat 2.5/0.5mg 3 Ml Ampul.Neb INHALE 04/19/24 12:53 3 ml ONCE ONE Administration Magnesium Sulfate 2 gm in 50 mls @ 25 mls/hr 04/19/24 12:14 04/19/24 13:31 Magnesium Sulfate/H2o IV 04/19/24 14:13 25 mls/hr ONCE ONE Administration Thiamine HCl 200 mg/ Sodium 102 mls @ 204 mls/hr 04/19/24 12:14 04/19/24 13:19 Chloride IV 04/19/24 12:43 Infused ONCE ONE Infusion Sodium Chloride 1,000 mls @ 999 mls/hr 04/19/24 13:18 04/19/24 13:29 Ns IV 04/19/24 14:18 999 mls/hr .Q1H1M ONE Administration Lorazepam 1 mg 04/19/24 12:20 04/19/24 12:44 Lorazepam 2 Mg/Ml Vial IVPUSH 04/19/24 12:21 1 mg STAT STA Administration Medical Decision Making Medical Decision Making [facility] Narrative: 48 yo male with PMH of schizophrenia, 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 He is not taking his medications. He is responding to internal stimuli. Differential Diagnosis Differential Diagnoses: The differential diagnosis associated with the presentation includes ETOH abuse, drug abuse, DID, schizophrenia Admission/Observation Consideration of admission/observation: Escalation of care including admission/observation considered physician observation starting at 226pm pending CARE team will repeat labs at 8pm pending fluids and calcium Consult Healthcare Provider Management of the patient was discussed with: Behavioral Health Provider Lab Data [facility] Lab Attestation statement: I reviewed the patient's lab results. 04/19/24 12:43 04/19/24 12:43 Labs: Lab Results 04/19/24 04/19/24 04/19/24 Range/Units 12:42 12:43 12:51 WBC 8.9 (4.8-10.8) X10*3/uL RBC 5.87 H (4.60-5.80) X10*6/uL Hgb 19.3 H (14.0-18.0) g/dl Hct 52.0 (42.0-52.0) % MCV 88.6 (80.0-98.0) fL MCH 32.9 (27.0-33.0) pg MCHC 37.1 H (31.0-36.0) g/dl RDW 11.3 (11.0-16.0) % Plt Count 227 (160-400) X10*3/uL MPV 8.9 L (9.4-12.4) fL Immature Gran % (Auto) 0.5 H (0.0-0.4) % Neut % (Auto) 57.7 (45-73) % Lymph % (Auto) 32.5 (20-40) % Cecil % (Auto) 8.0 (2-11) % Eos % (Auto) 0.2 (0-4) % Baso % (Auto) 1.1 (0-2) % Lymph # (Auto) 2.9 (1.2-4.9) X10*3/uL Cecil # (Auto) 0.7 (0.1-1.2) X10*3/uL Eos # (Auto) 0.0 (0.0-0.4) X10*3/uL Baso # (Auto) 0.1 (0.0-0.2) X10*3/uL Abs Immat Gran (auto) 0.04 H (0.00-0.03) X10*3/uL Absolute Neuts (auto) 5.1 (2.0-8.3) x10*3/uL Absolute Nucleated RBC 0.000 (0.0-0.012) X10*3/uL Nucleated RBC % (auto) 0.0 (0.0-0.2) /100WBC VBG pH 7.42 (7.32-7.43) VBG pCO2 39 mmHg VBG pO2 89 mmHg VBG HCO3 26 (22-26) mmol/L VBG O2 Saturation 98.0 % VBG Base Excess 2.1 mmol/L Sodium 143 (135-145) mmol/L Potassium 3.6 (3.3-5.1) mmol/L Chloride 104 (96-108) mmol/L Carbon Dioxide 25 (22-29) mmol/L Anion Gap 18 (12-20) BUN 22 H (9-16) mg/dL Creatinine 1.00 (0.5-1.4) mg/dL Estim Creat Clear Calc 100.4 Estimated GFR > 60 Random Glucose 137 H (60-115) mg/dL Calcium 7.7 L D (8.4-10.2) mg/dL Magnesium 2.3 (1.6-2.6) mg/dL Total Bilirubin 1.5 H (0.0-1.0) mg/dL Direct Bilirubin 0.5 (0.0-0.5) mg/dL AST 84 H (5-37) U/L ALT 112 H (0-40) U/L Alkaline Phosphatase 62 (39-117) U/L B-Natriuretic Peptide < 10 (<100) pg/mL Total Protein 7.1 (6.5-8.0) g/dL Albumin 3.9 (3.5-5.0) g/dL Lipase 22 (8-78) U/L Ethyl Alcohol 286 288 mg/dL Influenza Type A (PCR) NEGATIVE (Negative) Influenza Type B (PCR) NEGATIVE (Negative) RSV RNA Qual (PCR) NEGATIVE (Negative) SARS-CoV-2 RNA (RT-PCR) NEGATIVE (Negative) Independent Interpretation I performed an independent interpretation of an: EKG and Plain X-Ray (normal ) Interpretation: Rate: 105 Rhythm: sinus tach [place]: left Normal P waves. Normal KAE. Normal QRS complex. ST T wave : no VALENTINE, nonspecific ST T wave changes lateral leads qTC: 470 prior studies: no acute ischemia The study has been interpreted contemporaneously by me. . Radiology Impression Discussion of test interpretation with radiology: I have reviewed the radiologist's reading. Independent Historian Clinical information obtained from an independent historian. History obtained from or confirmed by: Spouse External Record Review External record reviewed: Inpatient record and Outpatient record Discharge Plan Discharge Clinical Impression: Alcohol abuse, Hallucinations, Hypocalcemia Patient Disposition: Still a Patient Prescriptions: No Action albuterol sulfate 90 mcg/actuation HFA aerosol inhaler 2 puff inhalation Q4-6H PRN (Reason: shortness of breath or wheezing) Qty: 8.5 0RF prednisone 20 mg tablet 20 mg PO DAILY Qty: 4 0RF Rx Instructions: take with food prednisone 20 mg tablet 40 mg PO DAILY Qty: 10 0RF albuterol sulfate 90 mcg/actuation HFA aerosol inhaler 2 puff inhalation Q6H PRN (Reason: shortness of breath or wheezing) Qty: 8.5 0RF ciprofloxacin HCl 0.3 % drops 1 drp ophthalmic (eye) Q4H Qty: 5 0RF Rx Instructions: administer while awake Interventions: [place]-Suicide Risk Severity Scale Last Done: 04/19/24 14:14 Print Language: [place]
[2024-04-19] MEDS: LORazepam 2 MG/ML VIAL 1 MG IVPUSH (12:44)
[2024-04-19] MEDS: Thiamine HCL 200 MG in 0.9 % Sodium Chloride 100 ML 204 MG IV (12:49)
[2024-04-19 12:50] LABS: MANUAL DIFF FLAG NO
[2024-04-19 12:54] VITALS: PULSE 114; RESP 18; O2SAT 97
[2024-04-19 12:54] LABS: Venous Blood Gas Refer to POC result
[2024-04-19] MEDS: Albuterol/Iprat 2.5/0.5MG 3 ML AMPUL.NEB INHALE (12:54)
[2024-04-19 12:55] LABS: VBG Base Excess 2.1 mmol/L; VBG HCO3 26 mmol/L (22-26); VBG pCO2 39 mmHg; VBG pH 7.42 (7.32-7.43); VBG pO2 89 mmHg
[2024-04-19 13:05] LABS: Ethanol 286 mg/dL
[2024-04-19 13:08] LABS: Basophils Absolute Auto 0.1 X10*3/uL (0.0-0.2); Basophils Percent Auto 1.1 % (0-2); Eosinophils Percent Auto 0.2 % (0-4); Hemoglobin 19.3 g/dl (14.0-18.0); Imm Gran Abs Auto 0.04 X10*3/uL (0.00-0.03); Imm Gran Pct Auto 0.5 % (0.0-0.4); Lymphocytes Absolute Auto 2.9 X10*3/uL (1.2-4.9); Lymphocytes Percent Auto 32.5 % (20-40); Mean Corpuscular HGB Conc 37.1 g/dl (31.0-36.0); Mean Corpuscular Hemoglobin 32.9 pg (27.0-33.0); Mean Corpuscular Volume 88.6 fL (80.0-98.0); Mean Platelet Volume 8.9 fL (9.4-12.4); Monocytes Absolute Auto 0.7 X10*3/uL (0.1-1.2); Neutrophils Absolute Auto 5.1 x10*3/uL (2.0-8.3); Neutrophils Percent Auto 57.7 % (45-73); Platelet Count 227 X10*3/uL (160-400); Red Blood Count 5.87 X10*6/uL (4.60-5.80); Red Cell Distribution Width 11.3 % (11.0-16.0); White Blood Count 8.9 X10*3/uL (4.8-10.8)
[2024-04-19 13:11] LABS: Alanine Aminotransferase 112 U/L (0-40); Albumin Level 3.9 g/dL (3.5-5.0); Alkaline Phosphatase 62 U/L (39-117); Anion Gap 18 (12-20); Aspartate Amino Transferase 84 U/L (5-37); Bilirubin Direct 0.5 mg/dL (0.0-0.5); Bilirubin Total 1.5 mg/dL (0.0-1.0); Blood Urea Nitrogen 22 mg/dL (9-16); Calcium 7.7 mg/dL (8.4-10.2); Carbon Dioxide 25 mmol/L (22-29); Chloride 104 mmol/L (96-108); Creatinine Clr Calc Pharmacy 100.4; Estimated Glomerular Filt Rate > 60; Ethanol 288 mg/dL; Glucose Random 137 mg/dL (60-115); Lipase 22 U/L (8-78); Magnesium 2.3 mg/dL (1.6-2.6); Potassium 3.6 mmol/L (3.3-5.1); Sodium 143 mmol/L (135-145); Total Protein 7.1 g/dL (6.5-8.0)
[2024-04-19 13:15] LABS: B Type Natriuretic Peptide < 10 pg/mL (<100)
[2024-04-19] MEDS: 0.9 % Sodium Chloride 1,000 ML 999 ML IV (13:29)
[2024-04-19] MEDS: Magnesium Sulfate/H2O 2 GM/50 ML PIGGYBACK IV (13:31)
[2024-04-19 13:33] LABS: Influenza A PCR NEGATIVE (Negative); Influenza B PCR NEGATIVE (Negative); Resp Syncy Virus RNA Qual PCR NEGATIVE (Negative); SARS COV2 PCR INHOUSE NEGATIVE (Negative)
[2024-04-19] MEDS: Calcium Gluconate/NaCl,Iso-Osm 2 GM/100 ML PLAST..BAG IV (13:44)
[2024-04-19 15:30] VITALS: BP 140/88; PULSE 106; RESP 16; TEMP 36.7; O2SAT 93
--- NOTE | 2024-04-19 16:04 | PC.NURSE ---
pt brought back from with significant other. Per pt and SO pt has been on a 3 day drinking binge. Last drink 0800 today. Pt was observed pausing at random spots in ED hallway and staring blankly. Pt easily redirected by calling pt by name. pt became tearful in exam room, stating that he is hearing voices. pt hyperverbal at times, observed mumbling to self. This nurse was able to place 20g IV access in R-AC and obtain initial labs. pt was changed over by security [facility] *blue cell phone was returned to pt [place] [employer] by [employer]. Of note while pt was in [facility] pt made comments that he was fearful of his significant other. Pt sts that he has plans to leave his S.O. who he refers to as a narcissist , and move to [place] to be with his dtr. Pt sts that he knows he has to be sober in order to live with her. While t/w was interviewing pt, pt began speaking in the third person, i asked the pt who i was speaking to, pt responded my name is Pepe, and i was born on 05/12/1929 t/w asked how i can talk to Keith as i need to give him medications. pt responded, we need to count down from 10-0. counted down with pt- t/w asked who I was speaking to and pt responded Keith . pt responding appropriately to questions- awaiting CARE team jessika
[2024-04-19 18:39] LABS: Appearance Urine Clear; Color Urine Yellow; Glucose Urine UA Negative (Negative); Leukocyte Esterase Urine Negative (Negative); Nitrite Urine Negative (Negative); UMIC TRIGGER UACC YES; Urine Blood Large (3+) (Negative); Urine Ketones Negative (Negative); Urine Protein 30 (1+) mg/dL (Neg-Trace)
[2024-04-19 18:48] LABS: Amphetamine Screen Urine Not Detected (Not Detect); Barbiturates, Urine Not Detected (Not Detect); Benzodiazepines Screen Urine Not Detected (Not Detect); Buprenorphine Scr Not Detected (Not Detect); Cannabinoid Screen Urine Not Detected (Not Detect); Cocaine Screen Urine Not Detected (Not Detect); Fentanyl, urine Not Detected (Not Detect); Methadone Screen, Urine Not Detected (Not Detect); Opiate Screen Urine Not Detected (Not Detect); Oxycodone Screen Urine Not Detected (Not Detect); Phencyclidine Screen Urine Not Detected (Not Detect)
[2024-04-19 18:53] LABS: Bacteria Urine None Seen (None Seen); Hyaline Casts Urine 0-2 /LPF (0-2); Squamous Epithelial Cell Urine 0-2 /HPF (0-2); WBC Urine 0-5 /HPF (0-5)
[2024-04-19 19:51] LABS: Anion Gap 18 (12-20); Blood Urea Nitrogen 22 mg/dL (9-16); Carbon Dioxide 23 mmol/L (22-29); Chloride 106 mmol/L (96-108); Estimated Glomerular Filt Rate > 60; Glucose Random 153 mg/dL (60-115); Potassium 3.8 mmol/L (3.3-5.1); Sodium 143 mmol/L (135-145)
[2024-04-19] MEDS: ARIPiprazole 15 MG TABLET PO (20:56)
[2024-04-19] MEDS: Magnesium Hydrox/Alum Hydrox 30 ML ORAL.SUSP PO (21:03)
[2024-04-19] MEDS: Acetaminophen 325 MG TABLET 975 MG PO (21:03)
[2024-04-19] MEDS: Ondansetron ODT 4 MG TAB.RAPDIS TRANSLINGU (21:05)
[2024-04-19 21:13] VITALS: BP 140/88; PULSE 106; RESP 16; TEMP 36.7; O2SAT 93
== END 2024-04-19 21:14 | disposition home or self-care (01) ==
PROVIDERS: Emergency Medicine; Physician Assistant; Emergency Provider Emergency Medicine Emergency Medical Services
DX: F10.10 Alcohol abuse, uncomplicated (principal); Y90.8 Blood alcohol level of 240 mg/100 ml or more; R44.3 Hallucinations, unspecified; F44.9 Dissociative and conversion disorder, unspecified; E83.51 Hypocalcemia; J45.909 Unspecified asthma, uncomplicated; F12.90 Cannabis use, unspecified, uncomplicated; Z03.818 Encounter for observation for suspected exposure to other biological agents ruled out; Z79.899 Other long term (current) drug therapy
CPT/HCPCS: 0241U; 36415; 71045; 80048; 80053; 80307; 81001; 82248; 82803; 83690; 83735; 83880; 85025; 93005; 94640; 96361; 96365; 96375; 99285; J0613; J2060; J3411; J3475

== ENCOUNTER → 2024-04-19 12:14 | Outpatient (BNV) | payer OTHER, SELFPAY | PROVIDERS: Emergency Provider Emergency Medicine Emergency Medical Services; Visit Provider Internal Medicine | DX: R00.0 Tachycardia, unspecified (principal) | CPT/HCPCS: 93010 ==

== ENCOUNTER → 2024-04-19 12:15 | Outpatient (BNV) | payer OTHER, SELFPAY | PROVIDERS: Emergency Provider Emergency Medicine; Visit Provider Radiology Diagnostic Radiology | DX: R05.9 Cough, unspecified (principal) | CPT/HCPCS: 71045 ==